=== PATIENT | female | born 1970 | race Hispanic/Latino ===

== ENCOUNTER 2021-09-20 12:26 | Emergency (ER) | payer SELFPAY ==
--- OUTSIDE RECORDS SUMMARY | 2021-09-20 12:29 | XMS REPORT | Continuity of Care Document ---
:1970 Author Organization [facility] t Address 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 Attending Clinician Unavailable MANDY MENA Attending Clinician Unavailable Devon STOCKTON, D Attending Clinician Payers Payer Name Policy Type Policy Number Effective Date Expiration Date S ource Problems Condition Condition Condition Status Onset Resolution Last Treating Co mments Source Name Details Category Date Date Treatment Clinician Date No known No known Disease Unive rs active active ity of problems problems [facility] Allergies, Adverse Reactions, Alerts Allergy Allergy Status Severity Reaction(s) Onset Inactive Treating Comm ents Source Name Type Date Date Clinician No Known DA Active U 2017-04 [facility] Allergie 04-05 Clear s 00:00: [facility] No Known DA Active U [facility] Contrast 05-03 Clear Allergie 00:: Lamas [facility] No Known DA Active U [facility] Drug 05-03 Clear Allergie 00:00: Lamas s [facility] No Known DA Active U [facility] Food 05-03 Clear Allergie 00:00: Lamas s [facility] No Known DA Active U 2002-0 [facility] Other 1-30 Clear Allergie 00:00: Lamas s 00 [facility] Social History Social Habit Start Date Stop Date Quantity Comments Source Sex Assigned At Uni versity [facility] Smoking Status Start Date Stop Date Source Unknown if ever smoked Universit y [facility] Medications Ordered Filled Start Stop Current Ordering Indication Dosage Frequency Signature Comments Components Source Medication Medication Date Date Medication? Clinician (SIG) Name Name cefTRIAXone 2019- No 1000mg 1,000 mg, Univers (ROCEPHIN) 05-09- IV ity of 1,000 mg in 09:15: 08:53 [place], [place] NaCl 0.9% 00 :00 ONCE, 1 Medical (NS) 50 mL dose, Wed Bran ch MINI-BAG 05/09/19 at 0315, 50 mL
Reas on for Anti-Infec tive: Documented Infection< br>Documen tushar Infection Site: Urine
D uration of Therapy: 7 days NaCl 0.9% 2019- No 1000mL at 999 Uni vers (NS) bolus 05-09 mL/hr, ity of infusion 07:45: 08:51 1,000 mL, Tay as 1,000 mL 00 :00 IV Medical Infusion, Branch ONCE, 1 dose, Tue05/09/19 at 0145, STAT sodium Yes 5mL 5 mL, Univers chloride 05-09 Intravenou ity o f (NS) 05:15: s, PRN, [place] injection 5 30 Starting Medi wayne mL 05/08/19 Branch at 2315, Until Discontinu ed, Routine, IV line flushing cephALEXin 2020- No [id number] 500mg Take 1 Univers (KEFLEX) 05-0916 capsule by ity of 500 mg 00:00: 05:59 mouth 2 [place] capsule 00 :00 (two) Medical times Branch daily for 10 days. ketorolac Yes 10mg Take 1 Univer s 10 mg 8-17 tablet by ity of tablet 00:00: mouth [place] 00 every 6 Medical (six) Branch hours as needed for Pain (scale 1-3). Vital Signs Vital Name Observation Time Observation Value Comments Source Systolic blood 2019-05-09 08:21:00 124 mm[Hg] Univer sity of pressure [facility] Diastolic blood 2019-05-09 08:21:00 90 mm[Hg] [facility] of pressure [facility] Heart rate 2019-05-09 08:21:00 71 /min [facility] Respiratory rate 2019-05-09 08:16:55 20 /min [facility] Oxygen saturation in 2019-05-09 08:16:55 100 /min [facility] Arterial blood by [facility] Pulse oximetry [place] Body temperature 2019-05-09 04:51:[address] [facility] Body weight 2019-05-09 04:51:00 86.198 kg [facility] Procedures Procedure Date / Time Performing Clinician Source Performed URINALYSIS 2019-05-09 06:49:00 Hayley Osorio [facility] GALV ONLY - INFLUENZA A 2019-05-09 06:48:00 Hayley Osorio [facility] B RSV PCR [facility] LIPASE 2019-05-09 05:29:00 Hardy Serrano [facility] TEST, SERUM 2019-05-09 05:29:00 [facility] 2019-05-09 05:29:00 Hardy Serrano [facility] COMP. METABOLIC PANEL 2019-05-09 05:29:00 Hardy Serrano [facility] ([id number]) [facility] CBC WITH DIFFERENTIAL 2019-05-09 05:29:00 Hardy Serrano [facility] PROTHROMBIN TIME / INR 2019-05-09 05:29:[address] [facility] ACTIVATED PARTIAL 2019-05-09 05:29:00 Hardy Serrano [facility] THRMPLAS SHRUTI [facility] EXTRA TUBE ORANGE 2019-05-09 05:29:00 Hardy Serrano [facility] EKG-12 LEAD 2019-05-09 05:16:51 Hardy Serrano [facility] Encounters Start End Encounter Admission Attending Care Care Encounter Source Date/Time Date/Time Type Type Clinicians Facility Department ID 2021-08-20 2021-08-21 Emergency E ABIODUN FARMER [facility] [id number] 21:00:00 00:03:00 LAURA 2020-11-18 2020-11-18 Outpatient CHANELJESUS MANUEL, [facility] [id number] 09:25:00 12:45:00 JE Hanson [facility] 2019-05-08 2019-05-09 Emergency Devon, TRAUMA [id number] Univers 22:55:48 03:03:[id number] [id number] [address] Results Test Description Test Time Test Comments Results Result Comments Source TEST, SERUM 2019-05-09 08:23:00 Test Item Value Reference Range Interpretation Comme nts PREG SERUM (test code = 4002269833) Negative BOY (test code = BOY) Less than 10 IU/L. ?If low titer or ectopic is suspected, resubmit specimen in 48-72 hours. [facility] B RSV [id number] 07:49:00 Test Item Value Reference Range Interpretation Comments Influenza A virus by PCR (test code Negative Negative = 43997-1) Influenza B virus by PCR (test code Negative Negative = 36738-7) RSV by PCR (test code = 08877-8) Negative Negative Lab Interpretation (test code = Normal 28112-9) [facility] 07[facility]22:00 Test Item Value Reference Range Interpretation Comments APPEARANCE (test code = Clear Clear 4264113196) COLOR (test code = Yellow Yellow 2971062356) PH (test code = 4.8-8.0 1718054209) SP GRAVITY (test code = 1.003-1.030 2554054418) GLU U QUAL (test code = Normal Normal 8841829423) BLOOD (test code = Negative Negative 4260458603) KETONES (test code = 80 mg/dL Negative A 4503189965) PROTEIN (test code = Negative Negative 2887-8) UROBILIN (test code = Normal Normal 8294628264) BILIRUBIN (test code = Negative Negative 0552912968) NITRITE (test code = Positive Negative A 5500745014) LEUK ROSS (test code = 250/uL Negative A 1572309180) RBC/HPF (test code = See_Comment [Autom ated message] 3820349927) The system via680 generated this result transmitted ref erence range: 0 - 3 HP F. The reference range was not used to int erpret this result as normal/abnormal . WBC/HPF (test code = See_Comment H [Autom ated message] 7482714881) The system via680 generated this result transmitted ref erence range: 0 - 5 HP F. The reference range was not used to int erpret this result as normal/abnormal . BACTERIA (test code = Many Negative A 1364772816) MUCOUS (test code = Slight Negative LPF A 0979754852) SQ EPITH (test code = See_Comment [Auto mated message] 6482244007) The system via680 generated this result transmitted ref erence range: <=2 HPF. The reference range was not used to int erpret this result as normal/abnormal . Lab Interpretation (test Abnormal code = 06497-3) [facility] WITH [id number] 06:30:00 Test Item Value Reference Range Interpretation Comments WBC (test code = See_Comment [Automated 6690-2) message] The sy stem which generated this result transmitted reference range : 4.30 - 11.10 10*3/?L. The reference range was not used to interpret this result as normal/abnormal . RBC (test code = See_Comment [Automated 789-8) message] The sy stem which generated this result transmitted reference range : 3.93 - 5.25 10*6/?L. The reference range was not used to interpret this result as normal/abnormal . HGB (test code = 14.4 g/dL 11.6-15 718-7) HCT (test code = 43.5 % 35.7-45.2 4544-3) MCV (test code = 89.7 fL 80.6-95.5 787-2) MCH (test code = 29.7 pg 25.9-32.8 785-6) MCHC (test code = 33.1 g/dL 31.6-35.1 786-4) RDW-SD (test code = 45.0 fL 39-49.9 26356-7) RDW-CV (test code = 13.8 % 12-15.5 788-0) PLT (test code = See_Comment [Automated 777-3) message] The sy stem which generated this result transmitted reference range : 166 - 358 10*3/ ?L. The reference r josh was not used to interpret this result as normal/abnormal . MPV (test code = 10.3 fL 9.5-12.9 59438-3) NRBC/100 WBC (test See_Comment [Automat ed code = 1845517790) message] The system which generated this result transmitted reference range : 0.0 - 10.0 /100 WBCs. The refer ence range was not u sed to interpret th is result as normal/abnormal . NRBC x10^3 (test code <0.01 See_Comment [Auto mated = 9918550354) message] The s ystem which generated this result transmitted reference range : 10*3/?L. The reference range was not used to interpret this result as normal/abnormal . GRAN MAT (NEUT) % 31.5 % (test code = 770-8) IMM GRAN % (test code 0.10 % = 7019275227) LYMPH % (test code = 60.1 % 736-9) MONO % (test code = 7.0 % 5905-5) EOS % (test code = 0.9 % 713-8) BASO % (test code = 0.4 % 706-2) GRAN MAT x10^3(ANC) 2.36 10*3/uL 1.88-7.09 (test code = 3083766670) IMM GRAN x10^3 (test <0.03 0-0.06 code = 0332557594) LYMPH x10^3 (test code 4.52 10*3/uL 1.32-3.29 H = 731-0) MONO x10^3 (test code 0.53 10*3/uL 0.33-0.92 = 742-7) EOS x10^3 (test code = 0.07 10*3/uL 0.03-0.39 711-2) BASO x10^3 (test code 0.03 10*3/uL 0.01-0.07 = 704-7) REACT LYMPHS (test Rare code = 1977201972) Lab Interpretation Abnormal (test code = 07458-8) [id number]00 Test Item Value Reference Range Interpretation Comments TROPONIN I (test 0.001 ng/mL See_Comment [Automated code = 4243854739) message] The system which generated this result transmitted reference range : <=0.034. The reference range was not used to interpret this result as normal/abnormal . BOY (test code = Equal or Less than BOY) 0.034 ng/ml---Normal ?Note: Cardiac troponin begins to rise 3-4 hours after the onset of ischemia. Repeat in 4-6 hours if the sample was drawn within 3-4 hours of the onset of the symptom and found normal. Between 0.035 and 0.120 ng/mL--- Borderline. Questionable myocardial injury or necrosis ? ?Note: Serial measurement may be necessary to confirm or exclude the diagnosis of myocardial injury or necrosis; Clinical correlation (symptoms, EKGs, imaging studies, and others) required; Repeat in 4-6 hours if clinically indicated. ? Equal or Higher than 0.121 ng/mL---Abnormal. Myocardial Injury or Necrosis Likely ? Biotin has been reported to cause a negative bias, interpret results relative to patient's use of biotin. ? Lab Interpretation Normal (test code = 71648-0) [facility]05829[facility]2019-05-09 06:13:00 Test Item Value Reference Range Interpretation Comments NA (test code = 140 mmol/L 135-145 1315961384) K (test code = 4.0 mmol/L 3.5-5 5938541239) CL (test code = 103 mmol/L 98-108 5806249702) CO2 TOTAL (test code = 22 mmol/L 23-31 L 6204887694) AGAP (test code = 2-16 9911445172) BUN (test code = 12 mg/dL 7-23 7906498346) GLUCOSE (test code = 75 mg/dL 70-110 4215825282) CREATININE (test code = 0.59 mg/dL 0.5-1.04 8428756958) TOTAL BILI (test code = 0.5 mg/dL 0.1-1.2 8234570523) CALCIUM (test code = 9.4 mg/dL 8.6-10.6 7687750438) T PROTEIN (test code = 8.1 g/dL 6.3-8.2 8111006486) ALBUMIN (test code = 4.6 g/dL 3.5-5 7149721515) ALK PHOS (test code = 68 U/L 34-122 6642807557) ALTv (test code = 24 U/L 5-35 1742-6) AST(SGOT) (test code = 47 U/L 13-40 H 4908424818) eGFR Calculation mL/min/1.73m2 (Non-) (test code = 7835357519) eGFR Calculation mL/min/1.73m2 () (test code = 0143487377) BOY (test code = BOY) Association of Glomerular Filtration Rate (GFR) and Staging of Kidney Disease* + --+ --+ ------+| GFR (mL/min/1.73 m2) ?| With Kidney Damage ?| ?Without Kidney Damage+ --------+ --------+ +| ?>90 ?| ?Stage one ?| ? Normal ?+ ---+ ---+ -------+| ?60-89 ?| ?Stage two ?| ? Decreased GFR ? + --+ --+ ------+| ?30-59 ?| ?Stage three ?| ? Stage three ? + --+ --+ ------+| ?15-29 ?| ?Stage four ? | ? Stage four ?+ ---+ ---+ -------+| ?<15 (or dialysis) ? ?| ?Stage five ? | ? Stage five ?+ ---+ ---+ -------+ *Each stage assumes the associated GFR level has been in effect for at least three months. ?Stages 1 to 5, with or without kidney disease, indicate chronic kidney disease. Notes: Determination of stages one and two (with eGFR >59mL/min/1.73 m2) requires estimation of kidney damage for at least three months as defined by structural or functional abnormalities of the kidney, manifested by either:Pathological abnormalities or Markers of kidney damage (including abnormalities in the composition of the blood or urine or abnormalities in imaging tests). Lab Interpretation Abnormal (test code = 12416-5) [facility], [id number] 06:13:00 Test Item Value Reference Range Interpretation Comments LIPASE (test code = 4777933164) 69 U/L 0-220 Lab Interpretation (test code = Normal 80975-0) [facility]2020-[facility] 06:05:00 Test Item Value Reference Range Interpretation Comments APTT Patient (test code = See_Comment [ Automated message] 3173-2) The system 139shop h generated this result transmitted ref erence range: 26 - 36 Seconds. The re ference range was not u sed to interpret this result as normal/abnor mal. Lab Interpretation (test Normal code = 98465-3) [facility] / [id number] 06:05:00 Test Item Value Reference Range Interpretation Comments PROTIME PATIENT (test See_Comment [Auto mated message] code = 5964-2) The system [employer] generated this result transmitted ref erence range: 10.1 - 1 2.6 Seconds. The re ference range was not u sed to interpret this result as normal/abnor mal. INR (test code = 6301-6) Nor mal INR <1.1; Warfarin Therap eutic range 2.0 to 3. 0 or 2.5 to 3.5, dep ending upon the indica tions. Lab Interpretation (test Normal code = 21905-1) [facility]"
[2021-09-20] MEDS ORDERED: NA CHLORIDE 0.9% 1,000 ML ONE (12:45)
[2021-09-20 13:32] LABS: Absolute Lymphocytes (CBC) 2.4 K/uL (0.7-4.9); Lymphocytes % 24.8 % (15.3-44.8); MPV 8.5 fL (7.6-11.3); RBC Red Blood Cell Count 4.32 M/uL (3.86-4.86)
[2021-09-20] MEDS ORDERED: MORPHINE 4 MG/ML SYR ONE (13:34)
[2021-09-20] MEDS ORDERED: CEFTRIAXONE 1000 MG/VIAL ONE (13:34)
[2021-09-20] MEDS ORDERED: ONDANSETRON 4 MG/2 ML VIAL ONE (13:34)
[2021-09-20 13:37] LABS: Albumin 3.7 g/dL (3.4-5.0); Bilirubin Total 0.3 mg/dL (0.2-1.0); Protein, Total 7.1 g/dL (6.4-8.2)
[2021-09-20 14:08] LABS: Urine Blood Negative (Negative); Urine Glucose Negative (Negative); Urine Protein Negative (Negative); Urine Specific Gravity 1.025 (1.005-1.030)
[2021-09-20 14:21] LABS: Urine Bacteria <20 /HPF (<20); Urine RBC NONE SEEN /HPF (NONE SEEN)
--- NOTE | 2021-09-20 14:22 | RAD REPORT ---
EXAM DESCRIPTION: CTAbdomen Pelvis Wo Contrast - 09/20/2021 2:11 pm CLINICAL HISTORY: Abdominal abscess/infection suspected COMPARISON: No comparisons TECHNIQUE: CT of the abdomen and pelvis was performed. All CT scans are performed using dose optimization technique as appropriate and may include automated exposure control or mA/KV adjustment according to patient size. FINDINGS: Lower chest: No acute abnormality. Liver: No acute abnormality or suspicious lesions. Biliary: No biliary ductal dilatation. Stomach: No significant focal abnormality. Duodenum: No significant focal abnormality. Pancreas: No significant abnormality. Spleen: No significant abnormality. Adrenal: No suspicious lesions. Kidney/ureter: No hydronephrosis. No renal calculi. Retroperitoneum: No retroperitoneal adenopathy. Vascular: No aneurysm. Bowel: Nonspecific fluid within the small bowel. No bowel obstruction. Normal appendix.. Peritoneum: No ascites or free air. Bladder: Grossly unremarkable. Reproductive: No adnexal masses. Bones: No acute fracture. Disc height loss at L4-5 and L5-S1. Other: n/a IMPRESSION: No acute intra-abdominal or pelvic finding. No urinary tract calculi. Normal appendix. N onspecific fluid within the small bowel could represent a mild gastroenteritis.
--- NOTE | 2021-09-20 15:11 | EDPHYS ---
Physician Documentation [facility] Name: Denis Sanchez Age: 50 yrs Sex: Female : 1970 Arrival Date: 09/20/2021 Time: 12:29 Bed 8 Private MD: ED Physician Houston Sanchez HPI: 09/20 13:33 This 50 yrs old Female presents to ER via Ambulatory with complaints of ma2 Abdominal Swelling, Pain With Urination, Back Pain. 13:33 Associated signs and symptoms: Pertinent negatives: diarrhea, fever, nausea. Severity ma2 of symptoms: At their worst the symptoms were moderate, in the emergency department the symptoms are unchanged. Associated signs and symptoms: Pertinent negatives: dysuria, headache, incontinence. 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 - Social history:: Smoking status: Reported history of juuling and/or vaping. Patient denies any tobacco usage or history of. Patient/guardian denies using alcohol, street drugs, The patient lives with family. - Family history:: not pertinent. ROS: 13:33 ma2 13:33 Constitutional: Negative for fever, chills, and weight loss, Respiratory: Negative for shortness of breath, cough, wheezing, and pleuritic chest pain. 13:33 All other systems are negative. Exam: 13:33 Constitutional: This is a well developed, well nourished patient who is awake, alert, ma2 and in no acute distress. Chest/axilla: Normal chest wall appearance and motion. Nontender with no deformity. No lesions are appreciated. Cardiovascular: Regular rate and rhythm with a normal S1 and S2. No gallops, murmurs, or rubs. Normal PMI, no JVD. No pulse deficits. Respiratory: Lungs have equal breath sounds bilaterally, clear to auscultation and percussion. No rales, rhonchi or wheezes noted. No increased work of breathing, no retractions or nasal flaring. Abdomen/GI: Soft, non-tender, with normal bowel sounds. No distension or tympany. No guarding or rebound. No evidence of tenderness throughout. Back: No spinal tenderness. No costovertebral tenderness. Full range of motion. Skin: Warm, dry with normal turgor. Normal color with no rashes, no lesions, and no evidence of cellulitis. MS/ Extremity: Pulses equal, no cyanosis. Neurovascular intact. Full, normal range of motion. Neuro: Awake and alert, GCS 15, oriented to person, place, time, and situation. Cranial nerves II-XII grossly intact. Motor strength 5/5 in all extremities. Sensory grossly intact. Cerebellar exam normal. Normal gait. Vital Signs: 12:41 BP 121 / 89; Pulse 72; Resp 16; Temp 97.0; Pulse Ox 99% on R/A; Weight 77.11 kg; Height ph 5 ft. 4 in. (162.56 cm); Pain 9/10; 12:53 BP 116 / 86; Pulse 69; Resp 17 S; Pulse Ox 99% on R/A; jg9 13:39 BP 124 / 89; Pulse 73; Resp 17; Pulse Ox 99% on R/A; ingram 15:16 BP 112 / 64; Pulse 75; Resp 17 S; Pulse Ox 98% ; jg9 12:41 Body Mass Index 29.18 (77.11 kg, 162.56 cm) ph MDM: 13:33 Patient medically screened. [facility] 13:33 Differential diagnosis: appendicitis, cervicitis, menorrhea, Data reviewed: vital [facility] signs, nurses notes. 15:09 Response to treatment: the patient's symptoms have markedly improved after treatment. [facility] 09/20 12:32 Order name: CBC with Diff; Complete Time: 14:12 [facility] 09/20 12:32 Order name: CMP; Complete Time: 14:12 [facility] 09/20 12:32 Order name: Lipase; Complete Time: 14:12 [facility] 09/20 12:32 Order name: Urine Microscopic Only; Complete Time: 15:00 [facility] 09/20 14:09 Order name: Urine Dipstick-Ancillary; Complete Time: 14:12 [facility] 09/20 14:13 Order name: Urine --Ancillary (enter results) 09/20 12:32 Order name: IV Saline Lock; Complete Time: 12:45 [facility] 09/20 13:52 Order name: Abdomen ; Complete Time: 15:00 [facility] 09/20 14:24 Order name: Urine Culture [facility] 09/20 12:32 Order name: Labs collected and sent; Complete Time: 12:45 [facility] 09/20 12:32 Order name: Urine Dipstick-Ancillary (obtain specimen); Complete Time: 14:13 [facility] 09/20 12:32 Order name: Urine Test (obtain specimen); Complete Time: 14:13 [facility] 09/20 12:56 Order name: Labs - recollect needed: recollect all tubes; Complete Time: 13:02 bd Administered Medications: 12:45 Drug: NS 0.9% 1000 ml Route: IV; Rate: 1 bolus; Site: right antecubital; ingram 15:21 Follow up: IV Status: Completed infusion; IV Intake: 1000ml jg9 13:36 Drug: Rocephin (cefTRIAXone) 1 grams Route: IV; Rate: calculated rate; Site: right hand;ingram 15:20 Follow up: IV Status: Completed infusion; IV Intake: 50ml jg9 13:36 Drug: morphine 4 mg Route: IVP; Infused Over: 4 mins; Site: right hand; ingram 13:36 Follow up: Response: No adverse reaction ingram 13:36 Drug: Zofran (Ondansetron) 4 mg Route: IVP; Site: left hand; ingram 13:36 Follow up: Response: No adverse reaction ingram Disposition Summary: 09/20/21 15:10 Discharge Ordered Location: Home ma2 Condition: Stable ma2 Diagnosis - UTI/ Urinary tract infection, site not specified ma2 Followup: ma2 - With: Private Physician - When: Tomorrow - Reason: If symptoms return, Continuance of care Discharge Instructions: - Discharge Summary Sheet ma2 - Urinary Tract Infection, Adult ma2 Forms: - Medication Reconciliation Form ma2 - Thank You Letter ma2 - Antibiotic Education ma2 - Prescription Opioid Use ma2 Prescriptions: - Diclofenac Sodium 75 mg Oral Tablet Sustained Release - take 1 tablet by ORAL route 2 times per day; 30 tablet; Refills: 0, Product ma2 Selection Permitted - cefpodoxime 200 mg Oral Tablet - take 1 tablet by ORAL route every 12 hours with food; 20 tablet; Refills: 0, ma2 Product Selection Permitted Signatures: Dispatcher [employer] [facility] Helene Summers Patricia, RN RN ph Houston Sanchez MD MD ma2 Cortney Brunson RN RN Laura Grossman RN jg9 Corrections: (The following items were deleted from the chart) 12:41 12:40 PMHx: None; ph ph 13:52 13:26 Abdomen Pelvis W Con+CT.RAD.BRZ ordered. EDMS EDMS
--- NOTE | 2021-09-20 15:11 | ER ---
Nurse's Notes [facility] Name: Denis Sanchez Age: 50 yrs Sex: Female : 1970 Arrival Date: 09/20/2021 Time: 12:29 Bed 8 Private MD: Diagnosis: UTI/ Urinary tract infection, site not specified Presentation: 09/20 12:41 Chief complaint: Patient states: Abd. pain with bloating that wraps around to back for ph 2 days. Had low grade fever of 99 at home. + dysuria. States she started vaginal bleeding today, so she wanted to come get checked out. Coronavirus screen: Vaccine status: Patient reports being unvaccinated. Client denies travel out of the [place] in the last 14 days. At this time, the client does not indicate any symptoms associated with coronavirus-19. Ebola Screen: Patient denies travel to an Ebola-affected area in the 21 days before illness onset. Initial Sepsis Screen: Does the patient meet any 2 criteria? No. Patient's initial sepsis screen is negative. Does the patient have a suspected source of infection? Yes: Acute abdominal pain. Risk Assessment: Do you want to hurt yourself or someone else? Patient reports no desire to harm self or others. Onset of symptoms was September 19, 2021. 12:41 Method Of Arrival: Ambulatory ph 12:41 Acuity: FAM 3 ph Triage Assessment: 12:44 General: Appears uncomfortable, Behavior is calm, cooperative, appropriate for age. ph Pain: Complains of pain in abdomen Pain currently is 9 out of 10 on a pain scale. Quality of pain is described as aching, crampy. GI: Reports lower abdominal pain, upper abdominal pain, cramping. : Reports burning with urination, vaginal bleeding that is. WEB CONTENT EDITOR: 15:20 LMP N/A - Irregular menses jg9 Historical: - Allergies: 12:40 No Known Allergies; ph - PMHx: 12:40 Depressive disorder; Bipolar disorder; adhd; ph - PSHx: 12:40 section; ph - Immunization history:: Client reports having NOT received the Covid vaccine. - Social history:: Smoking status: Reported history of juuling and/or vaping. Patient denies any tobacco usage or history of. Patient/guardian denies using alcohol, street drugs, The patient lives with family. - Family history:: not pertinent. Screenin:48 Abuse screen: Denies threats or abuse. Denies injuries from another. Nutritional ingram screening: No deficits noted. Tuberculosis screening: No symptoms or risk factors identified. Fall Risk None identified. Assessment: 12:48 Pain: Complains of pain in back and abdomen. : Reports burning with urination, pain ingram blood in urine. 12:49 GI: Abd is soft and non tender X 4 quads. ingram Vital Signs: 12:41 BP 121 / 89; Pulse 72; Resp 16; Temp 97.0; Pulse Ox 99% on R/A; Weight 77.11 kg; Height ph 5 ft. 4 in. (162.56 cm); Pain 9/10; 12:53 BP 116 / 86; Pulse 69; Resp 17 S; Pulse Ox 99% on R/A; jg9 13:39 BP 124 / 89; Pulse 73; Resp 17; Pulse Ox 99% on R/A; ingram 15:16 BP 112 / 64; Pulse 75; Resp 17 S; Pulse Ox 98% ; jg9 12:41 Body Mass Index 29.18 (77.11 kg, 162.56 cm) ph ED Course: 12:29 Patient arrived in ED. mr 12:31 Houston Sanchez MD is Attending Physician. ma2 12:35 Cortney Brunson, RN is Primary Nurse. ingram 12:40 Arm band placed on Patient placed in an exam room, on a stretcher. ph 12:44 Triage completed. ph 12:46 Inserted saline lock: 20 gauge in right antecubital area, using aseptic technique. tp1 Blood collected. 12:48 Patient has correct armband on for positive identification. Bed in low position. ingram 12:48 No provider procedures requiring assistance completed. Inserted. ingram 14:13 Abdomen In Process Unspecified. EDMS 15:19 IV discontinued. jg9 Administered Medications: 12:45 Drug: NS 0.9% 1000 ml Route: IV; Rate: 1 bolus; Site: right antecubital; ingram 15:21 Follow up: IV Status: Completed infusion; IV Intake: 1000ml jg9 13:36 Drug: Rocephin (cefTRIAXone) 1 grams Route: IV; Rate: calculated rate; Site: right hand;ingram 15:20 Follow up: IV Status: Completed infusion; IV Intake: 50ml jg9 13:36 Drug: morphine 4 mg Route: IVP; Infused Over: 4 mins; Site: right hand; ingram 13:36 Follow up: Response: No adverse reaction ingram 13:36 Drug: Zofran (Ondansetron) 4 mg Route: IVP; Site: left hand; ingram 13:36 Follow up: Response: No adverse reaction ingram Medication: 12:48 VIS not applicable for this client. ingram Intake: 15:20 IV: 50ml; Total: 50ml. jg9 15:21 IV: 1000ml; Total: 1050ml. jg9 Outcome: 15:10 Discharge ordered by . trinh 15:19 Discharged to home ambulatory. jg9 15:19 Condition: stable 15:19 Discharge instructions given to patient, Instructed on discharge instructions, follow up and referral plans. Demonstrated understanding of instructions, follow-up care, Prescriptions given X 2. 15:20 Patient left the ED. jg9 Signatures: Dispatcher [employer] Janette Lino Patricia, RN RN Houston Sanchez MD MD ma2 Parker, Tiffany tpLaura Menchaca RN RN jg9 Cortney Brunson RN RN ingram Corrections: (The following items were deleted from the chart) 12:41 12:40 PMHx: None; [facility]
[2021-09-20 15:31] VITALS: TEMP 97
[2021-09-20 15:57] VITALS: BP 112/64; O2SAT 98
[2021-09-20 19:52] LABS: Urine Specific Gravity/Preg 1.025 (1.005-1.030)
== END 2021-09-20 15:20 | disposition home or self-care (01) ==
LOC: ER 12:26
DX: N39.0 Urinary tract infection, site not specified (principal)
CPT/HCPCS: 36415; 74176; 80053; 81003; 81015; 81025; 83690; 85025; 87086; 87088; 99284; J2405; J7030

== ENCOUNTER 2022-08-19 10:20 | Emergency (ER) | payer SELFPAY ==
--- OUTSIDE RECORDS SUMMARY | 2022-08-19 10:24 | XMS REPORT | Continuity of Care Document ---
:1970 Author Organization [facility] t Address [address] [place] [address] Care Team Providers Name Role Phone Stacey Lagunas Attending Clinician Unavailable Laura Cedillo Attending Clinician LAURA CEDILLO Attending Clinician Unavailable Je Mena Attending Clinician JE MENA Attending Clinician Unavailable Hayley Osorio MD Attending Clinician UNDEFINED Admitting Clinician Unavailable Payers Payer Name Policy Type Policy Number Effective Date Expiration Date S ource Problems Condition Condition Condition Status Onset Resolution Last Treating Co mments Source Name Details Category Date Date Treatment Clinician Date CHEST PAIN CHEST Diagnosis Active 2021-2021-08-26 Memoria PAIN 08-20 12:45:00 l Active 00:00: [place] 08/20/2021 00 [facility] Z80.0 Z80.0 Diagnosis Active 2020-11-18 [facility] sandraa Z12.10 Z12.10 8-11 13:44:00 l Active 00:00: [place] 11/12/2020 00 [facility] Z12.31 - Z12.31 - Diagnosis Active 2021-01-04 Memoria ENCNTR ENCNTR 10-22 15:39:00 l SCREEN SCREEN 00:01: [place] MAMMOGRAM MAMMOGRAM 00 FOR MA FOR MA Active 10/22/2020 [facility] No known No known Disease Unive rs active active ity of problems problems [facility] Allergies, Adverse Reactions, Alerts Allergy Allergy Status Severity Reaction(s) Onset Inactive Treating Comm ents Source Name Type Date Date Clinician No Known DA Active U [facility]-16 [facility] 00 [facility] No Known DA Active U 2017-04 [facility] Allergie 1-02 [facility] 00:[facility]: [facility] 00 [facility] No Known DA Active U 2017-04 [facility] Allergie 1- Clear s 00:00: [place] 00 [facility] No Known DA Active U 2001-0 [facility] Contrast 1-30 Clear Allergie 00:00: [place] 00 [facility] No Known DA Active U 2001-0 [facility] Drug 1-30 Clear Allergie 00:00: [place] 00 [facility] No Known DA Active U 2001-0 [facility] Food 1-30 Clear Allergie 00:00: [place] 00 [facility] No Known DA Active U 2001-0 [facility] Other 1-30 Clear Allergie 00:00: [place] 00 [facility] No Known No Known Active Memori a Medicati Medicati l on on Valentin Allergie Allergie s s Social History Social Habit Start Date Stop Date Quantity Comments Source Sex Assigned At [facility] Social History 2014-09-03 2014-09-03 [facility] charly 23:47:44 23:47:44 Smoking Status Start Date Stop Date Source Unknown if ever smoked [facility] Medications Ordered Filled Start Stop Current Ordering Indication Dosage Frequency Signature Comments Components Source Medication Medication Date Date Medication? Clinician (SIG) Name Name James Yes PO, QAM, 0 Me moria 8-17 Refill(s) l 14:45: Wellbutrin 0 Yes PO, 0 Memori a 8-17 Refill(s) l 14:45: Ambien 0 Yes PO, Memoria 8-17 Bedtime, 0 l 14:45: Refill(s) Trazodone 0 Yes PO, BID, 0 Me moria 8-17 Refill(s) l 14:45: Depakote 0 Yes PO, TID, 0 Mem oria 8-17 Refill(s) l 14:45: Strattera Yes PO, QAM, 0 Me moria 8-17 Refill(s) l 14:44: cefTRIAXone 2019-0 2020- No 1000mg 1,000 mg, Univers (ROCEPHIN) 2- 02-05 IV ity of 1,000 mg in 09:15: 08:53 [place], [place] NaCl 0.9% 00 :00 ONCE, 1 Medical (NS) 50 mL dose, Wed Bran ch MINI-BAG 05/09/19 at 0315, 50 mL
Reas on for Anti-Infec tive: Documented Infection< br>Documen tushar Infection Site: Urine
D uration of Therapy: 7 days NaCl 0.9% 0 2020- No 1000mL at 999 Uni vers (NS) bolus 2-05 02-05 mL/hr, ity of infusion 07:45: 08:51 1,000 mL, Tay as 1,000 mL 00 :00 IV Medical Infusion, Branch ONCE, 1 dose, 05/09/19 at 0145, STAT sodium 2019-0 Yes 5mL 5 mL, Univers chloride 2-05 Intravenou ity o f (NS) 05:15: s, PRN, [place] injection 5 30 Starting Medi wayne mL 05/08/19 Branch at 2315, Until Discontinu ed, Routine, IV line flushing cephALEXin 2019-0 2020- No [id number] 500mg Take 1 Univers (KEFLEX) 2 02-16 capsule by ity of 500 mg 00:00: 05:59 mouth 2 [place] capsule 00 :00 (two) Medical times Branch daily for 10 days. ketorolac Yes 10mg Take 1 Univ s 10 mg 8-17 tablet by ity of tablet 00:00: mouth [place] [address] every 6 Medical (six) Branch hours as needed for Pain (scale 1-3). Vital Signs Vital Name Observation Time Observation Value Comments Source Systolic blood 2019-05-09 08:21:00 124 mm[Hg] Univer sity of pressure [facility] Diastolic blood 2019-05-09 08:21:00 90 mm[Hg] Unive rsity of [facility] Heart rate 2019-05-09 08:21:00 71 /min General acute hospital Respiratory rate 2019-05-09 08:16:55 20 /min [facility] Oxygen saturation in 2019-05-09 08:16:55 100 /min [facility] Arterial blood by [facility] Pulse oximetry Branch Body weight 2019-05-09 04:51:00 86.198 kg General acute hospital Body temperature 2019-05-09 04:51:00 36.5 Mariely [facility] Height 2021-08-21 02:07:00 167.64 cm [facility] BMI Calculated 2021-08-21 02:07:00 [facility] [place] Weight 2021-08-21 02:07:00 [facility] [place] Systolic (mm Hg) 2021-08-21 02:07:00 Cedric rial [place] Diastolic (mm Hg) 2021-08-21 02:07:00 Mem orial [place] Heart Rate 2021-08-21 02:07:00 [facility] [place] Respitory Rate 2021-08-21 02:07:00 Memori al [place] Temperature Oral (F) 2021-08-21 02:07:[address] [facility] Valentin Height 2020-11-18 15:44:00 [address] [facility] [place] Weight 2020-11-18 15:44:00 [facility] [place] BMI Calculated 2020-11-18 15:44:00 Memsandra Boydann Procedures Procedure Date / Time Performing Clinician Source Performed URINALYSIS 2019-05-09 06:49:[address] [facility] GALV ONLY - INFLUENZA A 2019-05-09 06:48:00 Hayley Osorio [facility] B RSV PCR Medical Branch LIPASE 2019-05-09 05:29:00 Hardy Serrano [facility] TEST, SERUM 2019-05-09 05:29:00 [facility] 2019-05-09 05:29:00 Hardy Serrano [facility] COMP. METABOLIC PANEL 2019-05-09 05:29:00 Hardy Serrano [facility] ([id number]) [facility] CBC WITH DIFFERENTIAL 2019-05-09 05:29:00 Hardy Serrano [facility] PROTHROMBIN TIME / INR 2019-05-09 05:29:00 Hardy Serrano [facility] ACTIVATED PARTIAL 2019-05-09 05:29:00 Hardy Serrano [facility] THRMPLAS [facility] EXTRA TUBE ORANGE 2019-05-09 05:29:00 Hardy Serrano [facility] EKG-12 LEAD 2019-05-09 05:16:51 Hardy Serrano [facility] Encounters Start End Encounter Admission Attending Care Care Encounter Source Date/Time Date/Time Type Type Clinicians Facility Department ID 2022-05-20 2022-05-20 Emergency EM Janneth, [facility] [id number] [facility] 12:49:00 16:36:00 [facility] 2021-08-21 2021-08-21 Emergency [facility] [id number] Memoria 02:00:00 05:03:00 michell Hanson 01 l [facility] 2021-08-20 2021-08-21 Outpatient GLORIA Cedillo [facility] [id number] 21:00:00 00:03:00 Laura Mckay 2021-08-20 2021-08-21 Emergency E ABIODUN CEDILLO [facility] [id number] MICHELLE 21:00:00 00:03:00 LAURA 2020-11-18 2020-11-18 Bedded [facility] [id number] Memoria 14:25:00 17:45:00 Outpatient michell Hanson 00 l [facility] 2020-11-18 2020-11-18 Outpatient Trina [facility] [id number] 09:25:00 12:45:00 Mouhamad 00 Radwan 2020-11-18 2020-11-18 Outpatient Trina [facility] [id number] 09:25:00 12:45:00 Mouhamad 00 Radwan 2020-11-18 2020-11-18 Outpatient TRINA [facility] [id number] Memoria 09:25:00 12:45:00 MOUHAMAD l [place] [facility] 2019-05-08 2019-05-09 Emergency Osorio, TRAUMA [id number] Univers 22:55:48 03:03:00 [facility][note 3] [id number] [place] [id number] [facility] 014 Branch 2014-09-03 2014-09-03 Outpatient [facility] [id number] [facility] 18:00:00 18:00:00 00 abrahan Hanson Results Test Description Test Time Test Comments Results Result Comments Source CHLAMYDIA GC DNA BY PCR 2022-05-20 15:52:00 Test Item Value Reference Range Interpretation Comme nts C. TRACHOMATIS DNA BY PCR NOT DETECTED Not Detecte (test code = CHLAMTDNA) N. GONORRHOEAE DNA BY PCR NOT DETECTED Not Detecte TE ST PERFORMED USING THE (test code = NGONORDNA) CEP BETTE GENEXPERT BY PCR.FALSE NEGAT DANIEL RESULTS MAY OCCUR IF TH E ORGANISM(S) ISPRESENT AT LE VELS BELOW THE ANALYTICAL LIMI T OD DETECTION.BECAU SE THE DETECTION OF CH LAMYDIA TRACHOMATIS AND NEISSERIA GONORRHOEAE IS DEPENDENT ON THE DNA PRESENT INTHE SAMPLE, RELIABLE RESULT S ARE DEPENDENT ON MI OPER SAMPLECOLLECTIO N, HANDLING, AND STORAGE. Comments to Box Hinge And Lock Attacher: from urineUA RFLX MICR CULT IF [id number] 14:33:00 Test Item Value Reference Range Interpretation Comments UA COLOR (test code = COLU) COLORLESS YELLOW UA APPEARANCE (test code = CLEAR CLEAR APPU) UA GLUCOSE DIPSTICK (test code NEGATIVE NEG = DGLUU) UA BILIRUBIN DIPSTICK (test NEGATIVE NEG code = BILU) UA KETONE DIPSTICK (test code NEGATIVE NEG = KETU) UA SPECIFIC GRAVITY (test code 1.002 1.001-1.035 N = SGU) UA BLOOD DIPSTICK (test code = NEG NEG MARCOS) UA PH DIPSTICK (test code = 7.0 5-9 RUTH) UA PROTEIN DIPSTICK (test code NEGATIVE NEG = PROU) UA UROBILINIOGEN DIPSTICK NEGATIVE mg/dL NEG (test code = URO) UA NITRITE DIPSTICK (test code NEG NEG = LUCY) UA LEUKOCYTE ESTERASE DIPSTICK NEG NEG (test code = LEUU) UA WBC (test code = WBCU) 0-2 #/hpf NONE SEEN UA EPITHELIAL CELLS (test code RARE #/HPF RARE-FEW = EPIU) UA RBC (test code = RBCU) 0-2 #/hpf NONE SEEN Indication for culture: Suprapubic PainSpecimen Description: CLEAN CATCHUR HCG [id number] 14:33:00 Test Item Value Reference Range Interpretation Comments UR HCG QUAL (test NEGATIVE 1. Very di lute urine code = HCGQLU) specimens, as indicated by a lowspecific g ravity, may not contain rep resentative levels ofhCG. 2 . False negative result s may occur when the levels of hCGare below the sensi tivity level of the test. If is still suspec tushar, a first morningurine sp ecimen should be colle cted 48 hours later and tested. Indication for culture: Suprapubic PainSpecimen Description: CLEAN CATCH- DUP AB/PEL/SC/[id number] 00:00:00 [facility] 1970 Sex: F Patient Name: GENARO WHEAT Unit No: [id number] EXAMS: CPT CODE: [id number] DUP AB/PEL/SC/LTD 42714 PROCEDURE INFORMATION: Exam: US Pelvis Complete (Transabdominal), Pelvis (Transvaginal), and US Duplex Arteryor Vein (Ovaries) Limited Exam date and time: 05/20/2022 2:02 PM Age: 51 years old Clinical indication: Pelvic pain; Prior surgery; Surgery date: 6+ months; Surgery type: C-s TECHNIQUE: Imaging protocol: Real-time transabdominal and transvaginal pelvic ultrasound (complete) with image documentation. Transvaginal imaging was used for better evaluation of the endometrium, adnexa, and/or cervix. Real-time duplex ultrasound scan of the arterial or venous flow of the ovaries with B-mode, color Doppler flow and spectral waveform analysis. Complete Pelvis, Limited Duplex. Duplex exam was performed to evaluate for torsion and other vascular conditions. COMPARISON: No relevant prior studies available. FINDINGS: Uterus: Anteverted. The uterus measures 6.7 x 3.2 x 4.2 cm. Endometrial stripe measures 4 mm. There are 2 small uterine fibroid measuring up to 9 x 11 mm in the anterior mid uterus. Right ovary/adnexa: Measures 2.1 x 1.2 x 1.4 cm. There is normal color and spectral Doppler evaluation of the ovary.No mass. Left ovary/adnexa: Measures 3.0 x 1.5 x 1.5 cm. There is normal color and spectral Doppler evaluation of the ovary. No mass. Intraperitoneal space: There is trace fluid in the cul-de-sac, likely physiologic. Urinary bladder: Unremarkble. IMPRESSION: 1. Small uterine fibroids. 2. Otherwise, unremarkable exam. at 1452 Reported and signed by: Starr Jordan CC: Stacey Lagunas MD Technologist: Della Vargas RDMS Probe: Trnscrbd D/ (9582) GCD.CPS Orig Print D/T: S: 05/20/2022 (4442) [facility] NAME: GENARO WHEAT Radiology Department PHYS: PETCA. - Stacey Lagunas [address] : 1970 AGE: 51 SEX: F [place], [place] [address] LOC: LaytonERS PHONE #: [phone] EXAM DATE: 05/20/2022 STATUS: REG ER FAX #: [phone] RAD NO: Page 1 Signed Report Patient Name: GENARO WHEAT Unit No: [id number] EXAMS: CPT CODE: [id number] DUP AB/PEL/SC/LTD 96291 (Continued) [facility] NAME: GENARO WHEAT Radiology Department PHYS: PETRODRIGUEZ.Stacey Che [address] : 1970 AGE: 51 SEX: F [place], [place] [address] LOC: MAX PHONE #:[phone] EXAM DATE: 05/20/2022 STATUS: REG ER FAX #: [phone] RAD NO: Page 2 Signed Report- US TRANSVAGINAL [id number] 00:00[facility] 1970 Sex: F Patient Name: GENARO WHEAT Unit No: [id number] EXAMS: CPT CODE: [id number] US TRANSVAGINAL W/PELVIS 67680 PROCEDURE INFORMATION: Exam: US Pelvis Complete (Transabdominal), Pelvis (Transvaginal), and US Duplex Artery or Vein (Ovaries) Limited Exam date and time: 05/20/2022 2:02 PM Age: 51 years old Clinical indication: Pelvic pain; Prior surgery; Surgery date: 6+ months; Surgery type: C-s TECHNIQUE: Imaging p rotocol: Real-time transabdominal and transvaginal pelvic ultrasound (complete) with image documentation. Transvaginal imaging was used for better evaluation of the endometrium, adnexa, and/or cervix. Real-time duplex ultrasound scan of the arterial or venous flow of the ovaries with B-mode, color Doppler flow and spectral waveform analysis. Complete Pelvis, Limited Duplex. Duplex exam was performed to evaluate for torsion and other vascular conditions. COMPARISON: No relevant prior studies available. FINDINGS: Uterus: Anteverted. The uterus measures 6.7 x 3.2 x 4.2 cm. Endometrial stripe measures4 mm. There are 2 small uterine fibroid measuring up to 9 x 11 mm in the anterior mid uterus. Right o vary/adnexa: Measures 2.1 x 1.2 x 1.4 cm. There is normal color and spectral Doppler evaluation of the ovary. No mass. Left ovary/adnexa: Measures 3.0 x 1.5 x 1.5 cm. There is normal color and spectralDoppler evaluation of the ovary. No mass. Intraperitoneal space: There is trace fluid in the cul-de-sac, likely physiologic. Urinary bladder: Unremarkble. IMPRESSION: 1. Small uterine fibroids. 2. Otherwise, unremarkable exam. at 1452 Reported and signed by: Starr Jordan CC: Stacey Lagunas MD Technologist: Della Vargas RDMS Probe: [id number] Trnscrbd D/ (3172) GCD.CPS Orig Print D/T: S: 05/20/2022 (1452) [facility] GENARO WHEAT Radiology Department PHYS: JAGDISH. - Stacey Lagunas [address] : 1970 AGE: 51 SEX: F [place], [place] [address] LOC: MAX PHONE #:[phone] EXAM DATE: 05/20/2022 STATUS: REG ER FAX #: [phone] RAD NO: Page 1 Signed Report Alonso alicia Name: GENARO WHEAT Unit No: [id number] EXAMS: CPT CODE: [id number] US TRANSVAGINAL W/PELVIS 66796 (Continued) [facility] NAME: GENARO WHEAT Radiology Department PHYS: JAGDISH. - Stacey Lagunas [address] : 1970 AGE: 51 [place]EX: [place] [address] LOC: MAX PHONE #: [phone] EXAM DATE: 05/20/2022 STATUS: REG ER FAX #: [phone] RADNO: Page 2 Signed Report- US PELVIS [id number] 00:00:00 [facility] 1970 Sex: F Patient Name: GENARO WHEAT Unit No: [id number] EXAMS: CPT CODE: [id number] US PELVIS COMPLETE 51990 PROCEDURE INFORMATION: Exam: US Pelvis Complete (Transabdominal), Pelvis (Transvaginal), and US Duplex Artery or Vein (Ovaries) Limited Exam date and time: 05/20/2022 2:02 PM Age: 51 years old Clinical indication: Pelvic pain; Prior surgery; Surgery date: 6+ months; Surgery type: C-s TECHNIQUE: Imaging protocol: Real-time transabdominal and transvaginal pelvic ultrasound (complete) with image documentation. Transvaginal imaging was used for better evaluation of the endometrium, adnexa, and/or cervix. Real-time duplex ultrasound scan of the arterial or venous flow of the ovaries with B-mode, color Doppler flow and spectral waveform analysis. Complete Pelvis, Limited Duplex. Duplex exam was performed to evaluate for torsion and other vascular conditions. COMPARISON: No relevant prior studies available. FINDINGS: Uterus: Anteverted. The uterus measures 6.7 x 3.2 x 4.2 cm. Endometrial stripe measures 4 mm. There are 2 small uterine fibroid measuring up to 9 x 11 mm in the anterior mid uterus. Right ovary/adnexa: Measures 2.1 x 1.2 x 1.4 cm. There is normal color and spectral Doppler evaluation of the ovary. No mass. Left ovary/adnexa: Measures 3.0 x 1.5 x 1.5 cm. There is normal color and spectral Dopplerevaluation of the ovary. No mass. Intraperitoneal space: There is trace fluid in the cul-de-sac, likely physiologic. Urinary bladder: Unremarkble. IMPRESSION: 1. Small uterine fibroids. 2. Otherwise, unremarkable exam. at 1452 Reported and signed by: Starr Jordan CC: Stacey Lagunas MD Technologist: Della Vargas RDMS Probe: Trnscrbd D/ (5492) GCD.CPS Orig Print D/T: S: 05/20/2022 (1452) [facility] NAME: GENARO WHEAT Radiology Department PHYS: PETCA. - Stacey Lagunas [address] : 1970 AGE: 51 SEX: F [place] [address] LOC: LaytonERS PHONE #: [phone] EXAMDATE: 05/20/2022 STATUS: REG ER FAX #: [phone] RAD NO: Page 1 Signed Report Patient Name: GENARO WHEAT Unit No: [id number] EXAMS: CPT CODE: [id number] US PELVIS COMPLETE 87352 (Continued) [facility] NAME: GENARO WHEAT Radiology Department PHYS: PETCA. - Stacey Lagunas [address] : 1970 AGE: 51 SEX: F [place], [place] [address] LOC: LaytonERS PHONE#: [phone] EXAM DATE: 05/20/2022 STATUS: REG ER FAX #: [phone] RAD NO: Page 2 Signed ReportCT/NG, NAAT, [id number] 17:32:21 Test Item Value Reference Range Interpretation Comments GONORRHEA, NAAT NEGATIVE NEGATIVE IMPORTA NT NOTICE: SEE (test code = [place] [address]) [email or web address] [email or web address] Note: Assay methodology is nucleic acid amplification b y automotive product engineer m ediated amplification ( TMA) utilizing the A ptima Combo 2 Assay. CHLAMYDIA, NAAT NEGATIVE NEGATIVE IMPORTA NT NOTICE: SEE (test code = [place] [address]) [email or web address] [employer]obasUrineKit Note: Assay methodology is nucleic acid amplification b y automotive product engineer m ediated amplification ( TMA) utilizing the A ptima Combo 2 Assay. UNLESS OTHERWISE INDICATED, ALL TESTING PERFORMED [facility] [address] [place] [address] DIRECTOR: VIVIANA SAENZ M.D. [place] NUMBER [id number] CAP ACCREDITATION N O. [id number] PAP TEST, THINPREP, [id number] 10:50:49 Test Item Value Reference Range Interpretation Comments SOURCE: (test Cervical/Endoce code = 8001) rvical SLIDES: (test 1 code = 8011) LMP: (test code 04/04/2011 = 8021) SPECIMEN (NOTE) Satisfactory f or ADEQUACY: (test evaluation. code = 61134) Endocervical cells/transform ation zone component present. INTERPRETATION: NILM/NO EPITH. (test code = ABNORMALITY;SEE 17260) BELOW -------- - NEGATIVE FOR INTRAEPITHELIAL LESION OR MALIGNANCY ( NILM) -------- -------- -------- ---- FINANCE CONTROLLER Avelino : (test code = Cancelli 8101) LOCATION: (test (NOTE) Specimens pr ocessed and code = 82950) [facility] at [facility], [address], [place] [address], Phone: , CLIA: [id number] CPT: (test code (NOTE) 12967 UNLESS OTHERWISE = 8140) INDICATED, COMP UTER AIDED AND CYTOTECHNOLOGIS T SCREENING PERFO RMED. The Pap test is a screening test with an inherent, but l ow probability of error. Your patient sh ould be reminded to con sult you immediately if she experiences any suspicious sign s or symptoms, regar dless of her Pap test re sult. An alternate repor t format containing imag es or consolidated pr ior Pap history is avai lable as applicable. HPV HIGH RISK WITH GENOTYPE, [id number] 10:43:14 Test Item Value Reference Range Interpretation Comments HPV HIGH RISK INTERP NEGATIVE NEGATIVE (test code = 57973) HPV 16 (test code = NEGATIVE 75380) HPV 18 (test code = NEGATIVE 24260) HPV, HR, OTHER NEGATIVE Testing meth odology is GENOTYPES (test code real-ti me PCR utilizing = 40710) hydrolysis prob es with the [employer] 4800 system. The marlon t individually de tects genotypes 16 an d 18, as well as the oth er 12 high risk types (31,33,35,39,45 ,51,52,56 ,58,59,66,68). The expected result is negative. A neg ative result does not rule out the presence of HPV not included in the genotype set, a low leve l of infection or sp ecimen sampling error. UNLESS OTHERWISE INDIC ATED, ALL TESTING PERFORM [facility], [place]. [address] [place] [address] LABORATORY DIRE CTOR: VIVIANA MELENDEZ M.D. CLIA NUMBER [id number] [place] [id number] VAGINAL PATHOGENS DNA [id number] 14:40:09 Test Item Value Reference Range Interpretation Comments SURESH SPECIES (test code = 38264) NEGATIVE NEGATIVE G. VAGINALIS (test code = 79723) POSITIVE NEGATIVE A T. VAGINALIS (test code = 51290) NEGATIVE NEGATIVE [id number] 15:35:00 Test Item Value Reference Range Interpretation Comments POC Sodium (test code = POC Sodium) 144 135-145 [facility][id number] 15:35:00 Test Item Value Reference Range Interpretation Comments POC Potassium (test code = POC 3.9 3.5-5.1 Potassium) [id number] 15:35:00 Test Item Value Reference Range Interpretation Comments POC Chloride (test code = POC Chloride) 103 95-109 [facility] Ce[id number] 15:35:00 Test Item Value Reference Range Interpretation Comments POC Carbon Dioxide (test code = POC 25 24-32 Carbon Dioxide) [facility] [id number] 15:35:00 Test Item Value Reference Range Interpretation Comments POC BUN (test code = POC BUN) 11 7-22 [facility] [id number] 15:35:00 Test Item Value Reference Range Interpretation Comments POC Creatinine (test code = POC 0.6 0.5-1.4 Creatinine) [facility] C[id number] 15:35:00 Test Item Value Reference Range Interpretation Comments POC Glucose (test code = POC Glucose) 90 70-99 [facility] C[id number] 15:35:00 Test Item Value Reference Range Interpretation Comments POC Ion Ca (test code = POC Ion Ca) 1.28 1.05-1.25 [facility] Ce[id number] 15:35:00 Test Item Value Reference Range Interpretation Comments POC Hemoglobin (test code = POC 14.6 12.0-16.0 Hemoglobin) [facility] Center[id number] 15:35:00 Test Item Value Reference Range Interpretation Comments POC Hematocrit (test code = POC 43.0 36.0-48.0 Hematocrit) [facility] [id number] 15:35:00 Test Item Value Reference Range Interpretation Comments POC AGAP (test code = POC AGAP) 21.0 10.0-20.0 [facility] CenterDwpqdirTVJAQPSVXTSJ0187-69-23 15:35:00 Test Item Value Reference Range Interpretation Comments eGFR (test code = eGFR) 108 [facility] TexasNplomlxPLSXVTXEEX4898-97-86 14:33:00 Test Item Value Reference Range Interpretation Comments Coronavirus (COVID-19) Not Detected (11/17/20 SHRAVAN (test code = 9:33 AM) Coronavirus (COVID-19) SHRAVAN) [place] [facility] TEST, [id number] 08:23:00 Test Item Value Reference Range Interpretation Comments PREG SERUM (test code Negative = 6078311854) BOY (test code = BOY) Less than 10 IU/L. ?If low titer or ectopic is suspected, resubmit specimen in 48-72 hours. [facility] B RSV [id number] 07:49:00 Test Item Value Reference Range Interpretation Comments Influenza A virus by PCR (test code Negative Negative = 16332-6) Influenza B virus by PCR (test code Negative Negative = 98548-1) RSV by PCR (test code = 33419-7) Negative Negative Lab Interpretation (test code = Normal 22728-3) [facility]22[facility]00 Test Item Value Reference Range Interpretation Comments APPEARANCE (test code = Clear Clear 7932508203) COLOR (test code = Yellow Yellow 6016025953) PH (test code = 4.8-8.0 5746125931) SP GRAVITY (test code = 1.003-1.030 9225452803) GLU U QUAL (test code = Normal Normal 9973096599) BLOOD (test code = Negative Negative 4882438371) KETONES (test code = 80 mg/dL Negative A 6123385156) PROTEIN (test code = Negative Negative 2887-8) UROBILIN (test code = Normal Normal 1727174157) BILIRUBIN (test code = Negative Negative 7781490618) NITRITE (test code = Positive Negative A 0734124331) LEUK ROSS (test code = 250/uL Negative A 3861074885) RBC/HPF (test code = See_Comment [Autom ated message] 4362808080) The system [employer] generated this result transmitted ref erence range: 0 - 3 HP F. The reference range was not used to int erpret this result as normal/abnormal . WBC/HPF (test code = See_Comment H [Autom ated message] 1164384127) The system whic h generated this result transmitted ref erence range: 0 - 5 HP F. The reference range was not used to int erpret this result as normal/abnormal . BACTERIA (test code = Many Negative A 3116661932) MUCOUS (test code = Slight Negative LPF A 0593347335) SQ EPITH (test code = See_Comment [Auto mated message] 0853519843) The system [employer] IZEA generated this result transmitted ref erence range: <=2 HPF. The reference range was not used to int erpret this result as normal/abnormal . Lab Interpretation (test Abnormal code = 17447-9) [facility] WITH [id number] 06:30:00 Test Item Value Reference Range Interpretation Comments WBC (test code = See_Comment [Automated 7890-2) message] The sy stem which generated this result transmitted reference range : 4.30 - 11.10 10*3/?L. The reference range was not used to interpret this result as normal/abnormal . RBC (test code = See_Comment [Automated 829-8) message] The sy stem which generated this [...] RDW-SD (test code = 45.0 fL 39-49.9 56148-7) RDW-CV (test code = 13.8 % 12-15.5 788-0) PLT (test code = See_Comment [Automated 777-3) message] The sy stem which generated this result transmitted reference range : 166 - 358 10*3/ ?L. The reference r josh was not used to interpret this result as normal/abnormal . MPV (test code = 10.3 fL 9.5-12.9 76285-4) NRBC/100 WBC (test See_Comment [Automat ed code = 5594287133) message] The system which generated this result transmitted reference range : 0.0 - 10.0 /100 WBCs. The refer ence range was not u sed to interpret th is result as normal/abnormal . NRBC x10^3 (test code <0.01 See_Comment [Auto mated = 6906556738) message] The s ystem which generated this result transmitted reference range : 10*3/?L. The reference range was not used to interpret this result as normal/abnormal . GRAN MAT (NEUT) % 31.5 % (test code = 770-8) IMM GRAN % (test code 0.10 % = 6103224115) LYMPH % (test code = 60.1 % 736-9) MONO % (test code = 7.0 % 5905-5) EOS % (test code = 0.9 % 713-8) BASO % (test code = 0.4 % 706-2) GRAN MAT x10^3(ANC) 2.36 10*3/uL 1.88-7.09 (test code = 3547261099) IMM GRAN x10^3 (test <0.03 0-0.06 code = 5524984986) LYMPH x10^3 (test code 4.52 10*3/uL 1.32-3.29 H = 731-0) MONO x10^3 (test code 0.53 10*3/uL 0.33-0.92 = 742-7) EOS x10^3 (test code = 0.07 10*3/uL 0.03-0.39 711-2) BASO x10^3 (test code 0.03 10*3/uL 0.01-0.07 = 704-7) REACT LYMPHS (test Rare code = 5205940231) Lab Interpretation Abnormal (test code = 57985-6) [facility] [id number] 06:17:00 Test Item Value Reference Range Interpretation Comments TROPONIN I (test 0.001 ng/mL See_Comment [Automated code = 0918752447) message] The system which generated this result [...] ? Lab Interpretation Normal (test code = 71198-8) [facility] ([id number])2019-05-09 06:13:00 Test Item Value Reference Range Interpretation Comments NA (test code = 140 mmol/L 135-145 2754210562) K (test code = 4.0 mmol/L 3.5-5 0301331763) CL (test code = 103 mmol/L 98-108 2358071924) CO2 TOTAL (test code = 22 mmol/L 23-31 L 7219735461) AGAP (test code = 2-16 2383980997) BUN (test code = 12 mg/dL 7-23 7426602841) GLUCOSE (test code = 75 mg/dL 70-110 6398498447) CREATININE (test code = 0.59 mg/dL 0.5-1.04 6551899954) TOTAL BILI (test code = 0.5 mg/dL 0.1-1.1 0043124757) CALCIUM (test code = 9.4 mg/dL 8.6-10.6 9040399742) T PROTEIN (test code = 8.1 g/dL 6.3-8.2 2219282587) ALBUMIN (test code = 4.6 g/dL 3.5-5 5211707420) ALK PHOS (test code = 68 U/L 34-122 1477131689) ALTv (test code = 24 U/L 5-35 1742-6) AST(SGOT) (test code = 47 U/L 13-40 H 0906403882) eGFR Calculation mL/min/1.73m2 (Non-) (test code = 1475579128) eGFR Calculation mL/min/1.73m2 () (test code = 1190403159) BOY (test code = BOY) Association of [...] tests). Lab Interpretation Abnormal (test code = 61936-4) [facility]IP[facility], [id number] 06:13:00 Test Item Value Reference Range Interpretation Comments LIPASE (test code = 4461329622) 69 U/L 0-220 Lab Interpretation (test code = Normal 58022-9) [facility] 06:05:00 Test Item Value Reference Range Interpretation Comments APTT Patient (test code = See_Comment [ Automated message] 3173-2) The system whic h generated this result transmitted ref erence range: 26 - 36 Seconds. The re ference range was not u sed to interpret this result as normal/abnor mal. Lab Interpretation (test Normal code = 69799-6) [facility] / [id number] 06:05:00 Test Item Value Reference Range Interpretation Comments PROTIME PATIENT (test See_Comment [Auto mated message] code = 5964-2) The system wh ich generated this result transmitted ref erence range: 10.1 - 1 2.6 Seconds. The re ference range was not u sed to interpret this result as normal/abnor mal. INR (test code = 6301-6) Nor mal INR <1.1; Warfarin Therap eutic range 2.0 to 3. 0 or 2.5 to 3.5, dep ending upon the indica tions. Lab Interpretation (test Normal code = 48009-5) [facility] Notes Date/Time Note Provider Source 2022-05-20 12:52:00-00:[address] [facility] ([facility]) EMERGENCY PROVIDER REPORT REPORT#:[id number] REPORT STATUS: Signed DATE:05/20/22 TIME: 1251 PATIENT: GENARO WHEAT UNIT #: [id number] ROOM/BED: AGE: 51 SEX: F PCP PHYS: No Primary or Family Ph ysician SERVICE AUTHOR: Stacey Lagunas MD * ALL edits or amendments must be made on the el [employer]/computer document * HPI- Female Free Text HPI Notes Free Text HPI Notes 46yo HF with PMH of uterine fibroid p/w pelvic p ain x3 days. Associated with occasional dysuria and vaginal discharge (green; foul smell). Onset after unprotected sex with new partner (last involveme nt 2 weeks ago). General Initial Greet Date/Time 05/20/22 1252 Presentation Chief Complaint Pelvic pain Hx Obtained From Patient )( Sudden in Onset? No Review of Systems ROS Statements All systems rev neg except as marked. Focused Review of Systems Constitutional Denies: Chills, Fever, Lethargy. GI Denies: Abdominal pain, Diarrhea, Nausea, Vomiti ng. Female Reports: Dysuria, Pelvic pain, Vaginal discharge . Musculoskeletal Denies: Back pain, Extremity pain. Endocrine Denies: Polyuria, Weight loss. Skin Denies: Diaphoresis, Rash. Neurologic Denies: Change LOC, Dizziness, Focal weakness, H eadache, Numbness, Slurred speech. Past Medical History - Adult Stated Complaint PELVIC PAIN, VOMITING, HODGE Allergies Coded Allergies: No Known Allergies (05/20/22) Other Social History Local resident Physical Exam Vital Signs Vital Signs First Documented: Result Date Time Pulse Ox 97 05/20 1259 B/P 109/67 05/20 1259 B/P Mean 81 05/20 1259 O2 Delivery Room air 05/20 1259 Temp 98.2 05/20 1259 Pulse 71 05/20 1259 Resp 18 05/20 1259 Last Documented: Result Date Time Pulse Ox 97 05/20 1259 B/P 109/67 05/20 1259 B/P Mean 81 05/20 1259 O2 Delivery Room air 05/20 1259 Temp 98.2 05/20 1259 Pulse 71 05/20 1259 Resp 18 05/20 1259 Review of Vital Signs Reviewed, Vital signs norm al Focused PE General/Const General/Const Awake, Alert, Well appearing Resp/Chest Respiratory/Chest Breath sounds NL, Breath soun ds = bilat, No respiratory distress, No rales, No rhonchi, No wheezing Cardiovascular Cardiovascular Heart rate NL, Regular rhythm, H eart sounds NL, Peripheral circulation NL Abdomen/GI Abdomen/GI Soft, Non-tender, No guarding, No re bound MS Back Back Inspection NL, Non-tender, No CVA tenderne ss Skin Skin Color NL, No rash, Warm, Dry, Turgor NL Genitourinary General [employer] Senior Executive present Female Genitourinary External genitalia NL, No bleeding, No cervical motion tend, Os closed, No adnexal mass, No adnexal tenderness, No uterine enlargement, No uterine mass, No lesions or rash Vaginal Bleeding/Discharge Discharge thin, Discharge scant. Interpretation Diagnostics Lab Results Interpretation Results Laboratory Tests: 05/20 05/20 1355 1325 Serology Chlamydia DNA Probe (Not Detecte) NOT DETECTED N.gonorrhoeae DNA Probe (Not Detecte) NOT DETE CTED Urines Urine Color (YELLOW) COLORLESS Urine Appearance (CLEAR) CLEAR Urine pH (5 - 9) 7.0 Ur Specific [place] (1.001 - 1.035) 1.002 Urine Protein (NEG) NEGATIVE Urine Glucose (UA) (NEG) NEGATIVE Urine Ketones (NEG) NEGATIVE Urine Blood (NEG) NEG Urine Nitrite (NEG) NEG Urine Bilirubin (NEG) NEGATIVE Urine Urobilinogen (NEG mg/dL) NEGATIVE Ur Leukocyte Esterase (NEG) NEG Urine RBC (NONE SEEN #/hpf) 0-2 Urine WBC (NONE SEEN #/hpf) 0-2 Ur Epithelial Cells (RARE - FEW #/HPF) RARE Urine HCG, Qual NEGATIVE Microbiology: Date/Time Procedure - Status Source Growth 05/20 1355 Wet Prep - COMP VAGINAL Recent Impressions: ULTRASOUND - US TRANSVAGINAL W/PELVIS 05/20 1401 Report Impression - Status: SIGNED Entered: 05/20/2022 145 IMPRESSION: 1. Small uterine fibroids. 2. Otherwise, unremarkable exam. Impression By: Starr Sanchez ULTRASOUND - DUP AB/PEL/SC/LTD 05/20 1401 Report Impression - Status: SIGNED Entered: 05/20/2022 1452 IMPRESSION: 1. Small uterine fibroids. 2. Otherwise, unremarkable exam. Impression By: Starr Sanchez ULTRASOUND - US PELVIS COMPLETE 05/20 1401 Report Impression - Status: SIGNED Entered: 05/20/2022 1452 IMPRESSION: 1. Small uterine fibroids. 2. Otherwise, unremarkable exam. Impression By: Starr Sanchez Lab Imaging Statement Laboratory radiographic studies reviewed and con sidered in the medical decision-making. Re-Evaluation MDM Free Text MDM Notes Free Text MDM Notes A/P: 51yo HF with PMH as above p/w pelvic pain 1. UA 2. Wet Mount 3. GC/Ch 4. Meds 5. Re-assess ADDENDUM Time: 1540 UA -ve. Wet mount without Tr ichomonas or BV. Pt re-assessed; symptoms improved. Results of work-up d/w Pt; v oiced understanding. Ok for DC home with PCP follow- up ED Course Medication(s) Ordered Medication(s) Ordered: Anti-Infective Agents Sig/Leo Start time Last Medication Dose Route Stop Time Status Admin Ceftriaxone Sodium 500 MG X1ED STA 05/20 1535 C ANr IM 05/20 1536 Cardiovascular Drugs Sig/Leo Start time Last Medication Dose Route Stop Time Status Admin Lidocaine HCl See Dose X1ED STA 05/20 1535 CANr Insts (1) IM 05/20 1536 Central Nervous System Agents Sig/Leo Start time Last Medication Dose Route Stop Time Status Admin Ketorolac 60 MG X1ED STA 05/20 1336 DC 05/20 Tromethamine IM 05/20 1337 1508 Gastrointestinal Drugs Sig/Leo Start time Last Medication Dose Route Stop Time Status Admin Ondansetron Base 4 MG ONCE ONE 05/20 1300 DC SL 05/20 1301 1259 Dose Instructions: (1)Lidocaine HCl: Follow Reconstitution Instruction Patient Discharge Departure Vital Signs/Condition Vital Signs First Documented: Result Date Time Pulse Ox 97 05/20 1259 B/P 109/67 05/20 1259 B/P Mean 81 05/20 1259 O2 Delivery Room air 05/20 1259 Temp 98.2 05/20 1259 Pulse 71 05/20 1259 Resp 18 05/20 1259 Last Documented: Result Date Time Pulse Ox 97 05/20 1259 B/P 109/67 05/20 1259 B/P Mean 81 05/20 1259 O2 Delivery Room air 05/20 1259 Temp 98.2 05/20 1259 Pulse 71 05/20 1259 Resp 18 05/20 1259 All vital signs available at the time of this en try have been reviewed. Clinical Impression Clinical Impression Primary Impression: PID (acute pelvic inflammato ry disease) Secondary Impressions: Pelvic pain Disposition Decision Discharge )( Discharged to Home Yes )( Time 1554 )( Date 05/20/22 Discharge/Care Plan Counseled Regarding Diagnosi s, Lab results, Imaging studies, Prescriptions, Need for follow-up, When to return to ED (Auto) Prescriptions Current Visit Scripts DOXYCYCLINE MONOHYDRATE (ADOXA) 100 MG PO BID 14 Days #28 TABS metroNIDAZOLE (FLAGYL) 500 MG PO BID 14 Days #28 TABS FLUCONAZOLE (DIFLUCAN) 150 MG PO ONCE FLUCONAZOLE (DIFLUCAN) 150 MG PO ONCE #1 TAB Patient Instructions ED Pelvic Inflammatory Dise ase Additional Instructions Follow-up with [facility] for [facility]. Referrals Provider Referral: Hafsa Del Toro MD Address: [address] [place] [address] Discharge Note I have spoken with the patie nt and/or caregivers. I have explained the patient's condition, diagnoses and rambo atment plan based on the information available to me at this time. I have answered the patient's and/ or caregiver's questions and addressed any concerns. The patient and/or careg shabana have as good an understanding of the patient 's diagnosis, condition and treatment plan as can be expected at this point. The vital signs have bee n stable. The patient's condition is stable and appr opriate for discharge from the emergency department. The patient will pursue further outpatient evalu ation with the primary care physician or other designated or consulting phys ician as outlined in the discharge instructions. The patient and/or caregivers are agreeable to this plan of care and follow-up instructions have been exp lained in detail. The patient and/or caregivers have received these instructio ns in written format and have expressed an understanding of the discharge inst ructions. The patient and/or caregivers are aware that any significant change in condition or worsening of symptoms should prompt an immediate return to [facility] or the closest emergency department or a call to 911. at 1630 RPT #:[id number] END OF REPORT"
--- NOTE | 2022-08-19 11:34 | EDPHYS ---
Physician Documentation [facility] Name: Denis Sanchez Age: 51 yrs Sex: Female : 1970 Arrival Date: 08/19/2022 Time: 10:20 Bed IW1 Private MD: ED Physician Junior Mathews HPI: 08/19 11:27 This 51 yrs old Female presents to ER via EMS with complaints of Anxiety. edi 11:27 The patient presents to the emergency department with anxiety, over unknown edi circumstances. Onset: The symptoms/episode began/occurred just prior to arrival, this morning. Past psychiatric history: Prior diagnosis: addiction history, bipolar disorder, ADHD. Associated signs and symptoms: The patient has no apparent associated signs or symptoms. Severity of symptoms: At their worst the symptoms were mild moderate in the emergency department the symptoms are unchanged. The patient has not experienced similar symptoms in the past. Historical: - Allergies: 10:27 No Known Allergies; kc6 - PMHx: 10:27 adhd; Bipolar disorder; depressive disorder; Seizure; Anxiety; kc6 - PSHx: 10:27 section; kc6 - Immunization history:: Adult Immunizations up to date. - Social history:: Smoking status: Patient denies any tobacco usage or history of. ROS: 11:28 Constitutional: Negative for fever, chills, and weight loss, Eyes: Negative for injury, edi pain, redness, and discharge, ENT: Negative for injury, pain, and discharge, Neck: Negative for injury, pain, and swelling, Cardiovascular: Negative for chest pain, palpitations, and edema, Respiratory: Negative for shortness of breath, cough, wheezing, and pleuritic chest pain, Abdomen/GI: Negative for abdominal pain, nausea, vomiting, diarrhea, and constipation, Back: Negative for injury and pain, : Negative for injury, bleeding, discharge, and swelling, MS/Extremity: Negative for injury and deformity, Skin: Negative for injury, rash, and discoloration, Neuro: Negative for headache, weakness, numbness, tingling, and seizure, Allergy/Immunology: Negative for hives, rash, and allergies, Endocrine: Negative for neck swelling, polydipsia, polyuria, polyphagia, and marked weight changes, Hematologic/Lymphatic: Negative for swollen nodes, abnormal bleeding, and unusual bruising. 11:28 Psych: Positive for anxiety, depression. Exam: 11:28 Constitutional: This is a well developed, well nourished patient who is awake, alert, edi and in no acute distress. Head/Face: Normocephalic, atraumatic. Eyes: Pupils equal round and reactive to light, extra-ocular motions intact. Lids and lashes normal. Conjunctiva and sclera are non-icteric and not injected. Cornea within normal limits. Periorbital areas with no swelling, redness, or edema. ENT: Nares patent. No nasal discharge, no septal abnormalities noted. Tympanic membranes are normal and external auditory canals are clear. Oropharynx with no redness, swelling, or masses, exudates, or evidence of obstruction, uvula midline. Mucous membranes moist. Neck: Trachea midline, no thyromegaly or masses palpated, and no cervical lymphadenopathy. Supple, full range of motion without nuchal rigidity, or vertebral point tenderness. No Meningismus. Chest/axilla: Normal chest wall appearance and motion. Nontender with no deformity. No lesions are appreciated. Cardiovascular: Regular rate and rhythm with a normal S1 and S2. No gallops, murmurs, or rubs. Normal PMI, no JVD. No pulse deficits. Respiratory: Lungs have equal breath sounds bilaterally, clear to auscultation and percussion. No rales, rhonchi or wheezes noted. No increased work of breathing, no retractions or nasal flaring. Abdomen/GI: Soft, non-tender, with normal bowel sounds. No distension or tympany. No guarding or rebound. No evidence of tenderness throughout. Back: No spinal tenderness. No costovertebral tenderness. Full range of motion. Skin: Warm, dry with normal turgor. Normal color with no rashes, no lesions, and no evidence of cellulitis. MS/ Extremity: Pulses equal, no cyanosis. Neurovascular intact. Full, normal range of motion. Neuro: Awake and alert, GCS 15, oriented to person, place, time, and situation. Cranial nerves II-XII grossly intact. Motor strength 5/5 in all extremities. Sensory grossly intact. Cerebellar exam normal. Normal gait. Psych: Awake, alert, with orientation to person, place and time. Behavior, mood, and affect are within normal limits. 11:28 Musculoskeletal/extremity: DVT Exam: No signs of deep vein thrombosis. no pain, no swelling, no tenderness, negative Homans' sign noted on exam, no appreciated bluish discoloration, no erythema, no increased warmth. Vital Signs: 10:23 BP 120 / 84; Pulse 87; Resp 19 S; Temp 98(TE); Pulse Ox 99% on R/A; Weight 77.11 kg kc6 (R); Height 5 ft. 5 in. ; 10:23 Body Mass Index 28.29 (77.11 kg, 165.1 cm) kc6 MDM: 10:29 Patient medically screened. edi 11:30 Differential diagnosis: drug withdrawal. acute psychotic break, depression, psychosis edi secondary to non-compliance. Data reviewed: vital signs, nurses notes. Consideration of Admission/Observation Escalation of care including admission/observation considered. Test considered but Not performed: Other Details PT LEFT FRO TRIAGE. Care significantly affected by the following chronic conditions: PSYCH, SEIZURES. Administered Medications: No medications were administered Disposition Summary: 08/19/22 11:33 Eloped Disposition: before being seen by provider edi Problem: an ongoing problem edi Symptoms: are unchanged edi Reason: unknown edi Condition: Undetermined edi Diagnosis - Anxiety disorder, unspecified edi - Bipolar disorder, unspecified edi Followup: edi - With: Private Physician - When: Upon discharge from the Emergency Department - Reason: Recheck today's complaints, Continuance of care, Re-evaluation by your physician Signatures: Junior Mathews MD MD cha Campbell, Kaitlyn RN RN kc6
--- NOTE | 2022-08-19 11:34 | ER ---
Nurse's Notes [facility] Name: Denis Sanchez Age: 51 yrs Sex: Female : 1970 Arrival Date: 08/19/2022 Time: 10:20 Bed IW1 Private MD: Diagnosis: Anxiety disorder, unspecified;Bipolar disorder, unspecified Presentation: 08/19 10:23 Chief complaint: EMS states: pt was at a hotel when he began to feel like she was going kc to have a seizure. states the patient walked out into the street because "she didn't want to have the seizure in the hotel." reports last seizure was approximately 1 week ago. Coronavirus screen: Vaccine status: Patient reports being unvaccinated. At this time, the client does not indicate any symptoms associated with coronavirus-19. Ebola Screen: No symptoms or risks identified at this time. Initial Sepsis Screen: Does the patient meet any 2 criteria? No. Patient's initial sepsis screen is negative. Does the patient have a suspected source of infection? No. Patient's initial sepsis screen is negative. Risk Assessment: Do you want to hurt yourself or someone else? Patient reports desire/thoughts of hurting themselves or someone else. Provider notified. Onset of symptoms was August 19, 2022. 10:23 Method Of Arrival: EMS: [facility] 6 10:23 Acuity: FAM 2 kc6 Triage Assessment: 10:27 General: Appears in no apparent distress. comfortable, Behavior is cooperative, kc6 appropriate for age, anxious, restless. Pain: Denies pain. EENT: No signs and/or symptoms were reported regarding the EENT system. Neuro: Cruz Agitation-Sedation Scale (RASS): +1 Restless Level of Consciousness is awake, alert, obeys commands, Oriented to person, place, time, situation, Appropriate for age. Cardiovascular: Capillary refill < 3 seconds. Respiratory: Airway is patent Trachea midline Respiratory effort is even, unlabored, Respiratory pattern is regular, symmetrical. GI: No signs and/or symptoms were reported involving the gastrointestinal system. : No signs and/or symptoms were reported regarding the genitourinary system. Derm: No signs and/or symptoms reported regarding the dermatologic system. Skin is intact, Skin is pink, warm \\T\\ dry. Musculoskeletal: No signs and/or symptoms reported regarding the musculoskeletal system. Circulation, motion, and sensation intact. Capillary refill < 3 seconds, Range of motion: intact in all extremities. Historical: - Allergies: 10:27 No Known Allergies; kc6 - PMHx: 10:27 adhd; Bipolar disorder; depressive disorder; Seizure; Anxiety; kc6 - PSHx: 10:27 section; kc6 - Immunization history:: Adult Immunizations up to date. - Social history:: Smoking status: Patient denies any tobacco usage or history of. Vital Signs: 10:23 BP 120 / 84; Pulse 87; Resp 19 S; Temp 98(TE); Pulse Ox 99% on R/A; Weight 77.11 kg kc6 (R); Height 5 ft. 5 in. ; 10:23 Body Mass Index 28.29 (77.11 kg, 165.1 cm) 6 ED Course: 10:23 Patient arrived in ED. mr 10:27 Triage completed. kc6 10:27 Arm band placed on. [facility] 10:29 Junior Mathews MD is Attending Physician. edi 10:40 not in lobby when called to see ER physician. 1 11:15 still not in lobby. Tried to call patients phone, no answer. Left without being seen. ll1 Administered Medications: No medications were administered Outcome: 11:43 Patient left the ED. ll1 Signatures: Junior Mathews MD MD cha Rivera, Mary mr ArambulaAbel, MONROE RN ll1 Ayala Joseph RN RN kc6 Corrections: (The following items were deleted from the chart) 10:30 10:23 Chief complaint: EMS states: pt was at a hotel when he began to feel lilke she kc6 was going to have a seizure. states the patient walked out into the street because she didn't want to have the seizure in the hotel. reports last seizure was approximately 1 week ago. kc6 10:59 10:23 Chief complaint: EMS states: pt was at a hotel when he began to feel like she was kc6 going to have a seizure. states the patient walked out into the street because "she didn't want to have the seizure in the hotel." reports last seizure was approximately 1 week ago. kc6
[2022-08-19 11:54] VITALS: BP 120/84; TEMP 98; O2SAT 99
== END 2022-08-19 11:43 | disposition left against medical advice (07) ==
LOC: ER 10:20
DX: Z53.21 Procedure and treatment not carried out due to patient leaving prior to being seen by health care provider (principal); F41.9 Anxiety disorder, unspecified; F31.9 Bipolar disorder, unspecified
CPT/HCPCS: 99282

== ENCOUNTER 2022-08-19 12:55 | Emergency (ER) | payer SELFPAY ==
--- OUTSIDE RECORDS SUMMARY | 2022-08-19 12:58 | XMS REPORT | Continuity of Care Document ---
:1970 Author Organization [facility] t Address [address] [facility] [address] [place] [address] Care Team Providers Name Role Phone Stacey [...] Clinician Date CHEST PAIN CHEST Diagnosis Active 2021-08-26 Memoria PAIN - 12:45:00 l Active 00:00: Wedron 08/20/2021 00 [facility] Z80.0 Z80.0 Diagnosis Active 2020-11-18 Mem oria Z12.10 Z12.10 8- 13:44:00 l Active 00:00: Valentin 11/12/2020 00 [facility] Z12.31 - Z12.31 - Diagnosis Active 2021-01-04 Memoria ENCNTR ENCNTR 10-22 15:39:00 l SCREEN SCREEN 00:01: Valentin MAMMOGRAM MAMMOGRAM 00 FOR MA FOR MA Active 10/22/2020 OPID [facility] No known No known Disease Unive rs active active ity of problems problems [facility] Allergies, Adverse Reactions, Alerts Allergy Allergy Status Severity Reaction(s) Onset Inactive Treating Comm ents Source Name Type Date Date Clinician No Known DA Active U [facility] 00 [facility] No Known DA Active U 2017-04 [facility] Allergie 1-02 [facility] 00 [facility] No Known DA Active U 2017-04 [facility] Allergie - Clear s 00:00: [place] 00 [facility] No Known DA Active U 2001-0 [facility] Contrast 1-30 Clear Allergie 00:00: Lamas s 00 [facility] No Known DA Active U 2001-0 [facility] Drug 1-30 Clear Allergie 00:00: Lamas s 00 [facility] No Known DA Active U 2001-0 [facility] Food 1-30 Clear Allergie 00:00: Lamas s 00 [facility] No Known DA Active U 2001-0 [facility] Other 1-30 Clear Allergie 00:00: Lamas s 00 [facility] No Known No Known Active Memori a Medicati Medicati l on on Wedron Allergie Allergie s s Social History Social Habit Start Date Stop Date Quantity Comments Source Sex Assigned At [facility] Social History 2014-09-03 [facility]44 Smoking Status Start Date Stop Date Source Unknown if ever smoked [facility] Medications Ordered Filled Start Stop Current Ordering Indication Dosage Frequency Signature Comments Components Source Medication Medication Date Date Medication? Clinician (SIG) Name Name Strattera Yes PO, QAM, 0 Me moria 11-18 Refill(s) l 14:45: Valentin 00 Wellbutrin 2021-0 Yes PO, 0 Memori a 8-17 Refill(s) l 14:45: Ambien 0 Yes PO, Memoria 8-17 Bedtime, 0 l 14:45: Refill(s) Trazodone 0 Yes PO, BID, 0 Me moria 8-17 Refill(s) l 14:45: Depakote 0 Yes PO, TID, 0 Mem oria 8-17 Refill(s) l 14:45: Wellbutrin 0 Yes PO, 0 Memori a 8-17 Refill(s) l 14:45: Ambien 0 Yes PO, Memoria 8-17 Bedtime, 0 l 14:45: Refill(s) Trazodone Yes PO, BID, 0 Me moria 8-17 Refill(s) l 14:45: Depakote 0 Yes PO, TID, 0 Mem oria 8-17 Refill(s) l 14:45: Strattera 0 Yes PO, QAM, 0 Me moria 8-17 Refill(s) l 14:45: Strattera 0 Yes PO, QAM, 0 Me moria 8-17 Refill(s) l 14:44: Strattera 0 Yes PO, QAM, 0 Me moria 8-17 Refill(s) l 14:44: cefTRIAXone 2019- No 1000mg 1,000 mg, Univers (ROCEPHIN) 05-09 02-05 IV ity of 1,000 mg in 09:15: 08:53 [place], [place] NaCl 0.9% 00 :00 ONCE, 1 Medical (NS) 50 mL dose, Wed Bran MINI-BAG 05/09/19 at 0315, 50 mL
Reas on for Anti-Infec tive: Documented Infection< br>Documen courtney Infection Site: Urine
D uration of Therapy: 7 days NaCl 0.9% 2019- No 1000mL at 999 Uni vers (NS) bolus 05-09 02-05 mL/hr, ity of infusion 07:45: 08:51 1,000 mL, Tay as 1,000 mL 00 :00 IV Medical Infusion, Branch ONCE, 1 dose, 05/09/19 at 0145, STAT sodium Yes 5mL 5 mL, Univers chloride 05-09 Intravenou ity o f (NS) 05:15: s, PRN, [place] injection 5 30 Starting Medi wayne mL 05/08/19 Branch at 2315, Until Discontinu ed, Routine, IV line flushing cephALEXin 2020- No [id number] 500mg Take 1 Univers (KEFLEX) 05-0916 capsule [...] 2019-05-09 08:21:00 124 mm[Hg] [facility] Diastolic blood 2019-05-09 08:21:00 90 mm[Hg[facility] Heart rate 2019-05-09 08:21:00 71 /min [facility] Respiratory rate 2019-05-09 08:16:55 20 /min [facility] Oxygen saturation in 2019-05-09 08:16:55 100 /min [facility] Arterial blood by [facility] Pulse oximetry Branch Body temperature 2019-05-09 04:51:00 36.5 Mariely [facility] Body weight 2019-05-09 04:51:00 86.198 kg [facility] Height 2021-08-21 02:07:00 167.64 cm Thiago Hanson BMI Calculated 2021-08-21 02:07:00 Flako tran Wedron Weight 2021-08-21 02:07:00 Thiago Hanson Systolic (mm Hg) 2021-08-21 02:07:00 Cedric Hanson Diastolic (mm Hg) 2021-08-21 02:07:00 Mercy Hanson Heart Rate 2021-08-21 02:07:00 [facility] Respitory Rate 2021-08-21 02:07:00 Flako Oneill Temperature Oral (F) 2021-08-21 02:07:00 98.3 F Thiago Hanson Height 2020-11-18 15:44:00 165.1 cm [facility] Valentin Weight 2020-11-18 15:44:00 [facility] BMI Calculated 2020-11-18 15:44:00 Flako Oneill Procedures Procedure Date / Time Performing Clinician Source Performed URINALYSIS 2019-05-09 06:49:00 Hayley Osor[facility] GALV ONLY - INFLUENZA A 2019-05-09 06:48:00 Hayley Osorio [facility] B RSV PCR [facility] LIPASE 2019-05-09 05:29:00 Hardy Serrano [facility] TEST, SERUM 2019-05-09 05:29:00 [facility] 2019-05-09 05:29:00 Hardy Serrano [facility] COMP. METABOLIC PANEL 2019-05-09 05:29:00 Hardy Serrano [facility] ([id number]) [facility] CBC WITH DIFFERENTIAL 2019-05-09 05:29:00 [facility] PROTHROMBIN TIME / INR 2019-05-09 05:29:00 Hardy Serrano [facility] ACTIVATED PARTIAL 2019-05-09 05:29:00 Hardy Serrano [facility] THRMPLAS [facility] EXTRA TUBE ORANGE 2019-05-09 05:29:00 Hardy Serrano [facility] EKG-12 LEAD 2019-05-09 05:16:51 Hardy Serrano [facility] Encounters Start End Encounter Admission Attending Care Care Encounter Source Date/Time Date/Time Type Type Clinicians Facility Department ID 2022-05-20 2022-05-20 Emergency [id number] [facility] 12:49:00 16:36:00 [facility] 2021-08-21 2021-08-21 Emergency nullFlavo [facility] [id number] Memoria 02:00:00 05:03:00 r Valentin 01 l [facility] 2021-08-21 2021-08-21 Emergency nullFlavo [facility] [id number] Memoria 02:00:00 05:03:00 r Valentin 01 l [facility] 2021-08-20 2021-08-21 Outpatient Mamadou [facility] [id number] 21:00:00 00:03:00 Laura Chavez 2021-08-20 2021-08-21 Emergency E MAMADOU [facility] 7501 [facility] 21:00:00 00:03:00 LAURA 2020-11-18 2020-11-18 Bedded [facility] [id number] Memoria 14:25:00 17:45:00 Outpatient r Wedron [address] [facility] 2020-11-18 2020-11-18 Bedded [facility] [id number] Memoria 14:25:00 17:45:00 Outpatient r Wedron [address] [facility] 2020-11-18 2020-11-18 Outpatient [facility] [id number] 09:25:00 12:45:00 Mouhamad 00 [facility] 2020-11-18 2020-11-18 Outpatient [facility] 621 [id number] 09:25:00 12:45:00 Mouhamad 00 [facility] 2020-11-18 2020-11-18 Outpatient [facility] [id number] Memoria 09:25:00 12:45:00 [facility]AMAD l [facility] 2019-05-08 2019-05-09 Emergency Osorio, TRAUMA [id number] Univers 22:55:48 03:03:00 Hayley DERAS 350.1.13.10 [id number] [id number] Branch 2014-09-03 2014-09-03 Outpatient NADIA NICOLE [id number] Memoria 18:00:00 18:00:00 00 abrahan Hanson 2014-09-03 2014-09-03 [id number] [facility] 18:00:00 18:00:00 00 l Valentin Results Test Description Test Time Test Comments Results Result Comments Source CHLAMYDIA GC DNA BY PCR 2022-05-20 15:52:00 Test Item Value Reference Range Interpretation Comme nts C. TRACHOMATIS DNA BY PCR NOT DETECTED Not Detecte (test code = CHLAMTDNA) N. GONORRHOEAE DNA BY PCR NOT DETECTED Not Detecte TE ST PERFORMED USING THE (test code = NGONORDNA) Me[employer] BETTE GENEXPERT BY PCR.FALSE NEGAT DANIEL RESULTS MAY OCCUR IF TH E ORGANISM(S) ISPRESENT AT LE VELS BELOW THE ANALYTICAL LIMI T OD DETECTION.BECAU SE THE DETECTION OF CH LAMYDIA TRACHOMATIS AND NEISSERIA GONORRHOEAE IS DEPENDENT ON THE DNA PRESENT INTHE SAMPLE, RELIABLE RESULT S ARE DEPENDENT ON [place] OPER SAMPLECOLLECTIO N, HANDLING, AND STORAGE. Comments to Dba Developer: from urineUA RFLX MICR CULT IF [id number] 14:33:00 Test Item Value Reference Range Interpretation [...] culture: Suprapubic PainSpecimen Description: CLEAN CATCHUR HCG [id number] 14:33:00 Test Item Value Reference Range Interpretation Comments UR HCG QUAL (test NEGATIVE 1. Very di lute urine code = HCGQLU) specimens, as indicated by a lowspecific g ravity, may not contain rep resentative levels ofhCG. 2 . False negative result s may occur when the levels of hCGare below the sensi tivity level of the test. If is still suspec courtney, a first morningurine sp ecimen should be colle cted 48 hours later and tested. Indication for culture: Suprapubic PainSpecimen Description: CLEAN CATCH- DUP AB/PEL/SC/[id number] 00:00:00 [facility] 1970 Sex: F Patient Name: GENARO WHEAT Unit No: [id number] EXAMS: CPT CODE: [id number] DUP AB/PEL/SC/LTD 66669 PROCEDURE INFORMATION: Exam: US Pelvis Complete (Transabdominal), [...] Technologist: Della Vargas RDMS Probe: Trnscrbd D/ (2932) GCD.CPS Orig Print D/T: S: 05/20/2022 (1452) [facility] NAME: GENARO WHEAT Radiology Department PHYS: GAMALIELCA. - Stacey Lagunas [address] : 1970 AGE: 51 SEX: F [place] [address] LOC: LaytonERS PHONE #: [phone] EXAMDATE: 05/20/2022 STATUS: REG ER FAX #: [phone] RAD NO: Page 1 Signed Report Patient Name: GENARO WHEAT Unit No: [id number] EXAMS: CPT CODE: [id number] DUP AB/PEL/SC/LTD 47922 (Continued) [facility] NAME: GENARO WHEAT Radiology Department PHYS: GAMALIELCA. - Stacey Lagunas [address] : 1970 AGE: 51 SEX: F [place] [address] LOC: LaytonERS PHONE #: [phone] EXAM DATE: 05/20/2022 STATUS: REG ER FAX #: [phone] RAD NO: Page 2 Signed Report- US TRANSVAGINAL W/PELVIS 2022-05-20 00:00:00 [facility] : 1970 Sex: F Patient Name: GENARO WHEAT Unit No: [id number] EXAMS: CPT CODE: [id number] US TRANSVAGINAL W/PELVIS 04382 PROCEDURE INFORMATION: Exam: US Pelvis Complete (Transabdominal), [...] mm in the anterior mid uterus. Right ov josey/adnexa: Measures 2.1 x 1.2 x 1.4 cm. [...] Jordan CC: Stacey Lagunas MD Technologist: Della Vargas, [facility] [[email or web address]] Probe: [id number] Trnscrbd D/ (1452) GCD.CPS Orig Print D/T: S: 05/20/2022 (7042) [facility] NAME: GENARO WHEAT Radiology Department PHYS: JAGDISH. - Stacey Lagunas [address] : 1970 AGE: 51 SEX: F [place] [address] [facility] PH[facility] #: [phone] EXAM DATE: 05/20/2022 STATUS: REG ER FAX #: [phone] RAD NO: Page 1 Signed Report Patient Name: GENARO WHEAT Unit No: [id number] EXAMS: CPT CODE: [id number] US TRANSVAGINAL W/PELVIS 97270 (Continued) [facility] NAME: GENARO WHAET Radiology Department PHYS: JAGDISH. -Stacey Lagunas [address] : 1970 AGE: 51 SEX: F [place] [address] LOC: LaytonERS PHONE #: [phone] EXAM DATE: 05/20/2022 STATUS: REG ER FAX #: [phone] RAD NO: Page 2 Signed Report- US PELVIS COMPLETE 2022-05-20 00:00:00 [facility] : 1970 Sex: F Patient Name: GENARO WHEAT Unit No: [id number] EXAMS: CPT CODE: [id number] US PELVIS COMPLETE 61220 PROCEDURE INFORMATION: Exam: US Pelvis Complete (Transabdominal), [...] Technologist: Della Vargas RDMS Probe: Trnscrbd D/ (9592) GCD.CPS Orig Print D/T: S: 05/20/2022 (1452) [facility] Rad[facility] Department PHYS: PETRODRIGUEZ.Scott - Stacey Lagunas D [address] : 1970 AGE: 51 SEX: F [place], [place] [address] LOC: LaytonERS PHONE #: [phone] EXAM DATE: 05/20/2022 STATUS: REG ER FAX #: [phone] RAD NO: Page 1 Signed Report Patient Name: GENARO WHEAT Unit No: [id number] EXAMS: CPT CODE: [id number] US PELVIS COMPLETE 76541 (Continued) [facility] NAME: GENARO WHEAT Radiology Department PHYS: PETCA. - JannethStacey guadalupe D [address] : 1970 AGE: 51 SEX: F [place], [place] [address] LOC: LaytonERS PHONE #: [phone] EXAM DATE: 05/20/2022 STATUS: REG ER FAX #: [phone] RAD NO: Page 2 Signed ReportCT/NG, NAAT, [id number] 17:32:21 Test Item Value Reference Range Interpretation Comments GONORRHEA, NAAT NEGATIVE NEGATIVE IMPORTA NT NOTICE: SEE (test code = [place] [address]) [email or web address] Note: Assay methodology is nucleic acid amplification b y contact lens flashing puncher m ediated amplification ( TMA) utilizing the A ptima Combo 2 Assay. CHLAMYDIA, NAAT NEGATIVE NEGATIVE IMPORTA NT NOTICE: SEE (test code = [place] [address]) [email or web address] Social Market AnalyticsKit Note: Assay methodology is nucleic acid amplification b y contact lens flashing puncher m ediated amplification ( TMA) utilizing the A ptima Combo 2 Assay. UNLESS OTHERWISE INDICATED, ALL TESTING PERFORMED [facility] [address] [place] [address] [facility] DIRECTOR: VIVIANA SAENZ M.D. CLIA NUMBER [id number] CAP ACCREDITATION N O. [id number] PAP TEST, THINPREP, [id number] 10:50:49 Test Item Value Reference Range Interpretation Comments SOURCE: (test Cervical/Endoce code = 8001) rvical SLIDES: (test 1 code = 8011) LMP: (test code 04/04/2011 = 8021) SPECIMEN (NOTE) Satisfactory f or ADEQUACY: (test evaluation. code = 75492) Endocervical cells/transform ation zone component present. INTERPRETATION: NILM/NO EPITH. (test code = ABNORMALITY;SEE 16499) BELOW -------- - NEGATIVE FOR INTRAEPITHELIAL LESION OR MALIGNANCY ( NILM) -------- -------- -------- ---- GATEMAN Avelino : (test code = Cancelli 8101) LOCATION: (test (NOTE) Specimens pr ocessed and code = 61817) interpreted at [facility], [address] [place] [address] 4, Phone: , CLIA: [id number] CPT: (test code (NOTE) 88107 UNLESS OTHERWISE = 8140) INDICATED, COMP UTER [...] consolidated pr ior Pap history is avai lababiola as applicable. HPV HIGH RISK WITH GENOTYPE, [id number] 10:43:14 Test Item Value Reference Range Interpretation Comments HPV HIGH RISK INTERP NEGATIVE NEGATIVE (test code = 02452) HPV 16 (test code = NEGATIVE 21837) HPV 18 (test code = NEGATIVE 54469) HPV, HR, OTHER NEGATIVE Testing meth odology is GENOTYPES (test code real-ti me PCR utilizing = 89302) hydrolysis prob es with the Georgina Pietro 4800 system. The marlon t individually de [...] TESTING PERFORM ED [facility], [address] [address] LABORATORY DIRE CTOR: VIVIANA MELENDEZ M.D. CLIA NUMBER [id number] [place] [id number] VAGINAL PATHOGENS DNA [id number] 14:40:09 Test Item Value Reference Range Interpretation Comments SURESH SPECIES (test code = 89173) NEGATIVE NEGATIVE G. VAGINALIS (test code = ) POSITIVE NEGATIVE A T. VAGINALIS (test code = 71484) NEGATIVE NEGATIVE [id number] 15:35:00 Test Item Value Reference Range Interpretation Comments POC Chloride (test code = POC Chloride) 103 95-109 [facility]MjetxfxLAMMAZIKHKDY4494-87-23 15:35:00 Test Item Value Reference Range Interpretation Comments POC Carbon Dioxide (test code = POC 25 24-32 Carbon Dioxide) [facility] CenterAdbclsyBLQHGBIJCHHS6623-01-86 15:35:00 Test Item Value Reference Range Interpretation Comments POC BUN (test code = POC BUN) 11 7-22 [facility] CenterQehcdsvXKPXWWVHKMEK1178-33-35 15:35:00 Test Item Value Reference Range Interpretation Comments POC Creatinine (test code = POC 0.6 0.5-1.4 Creatinine) [facility]ikvvBJGMHUOHDBYH6765-87-86 15:35:00 Test Item Value Reference Range Interpretation Comments POC Glucose (test code = POC Glucose) 90 70-99 [place] [id number] 15:35:00 Test Item Value Reference Range Interpretation Comments POC Ion Ca (test code = POC Ion Ca) 1.28 1.05-1.25 [place] [id number] 15:35:00 Test Item Value Reference Range Interpretation Comments POC Hemoglobin (test code = POC 14.6 12.0-16.0 Hemoglobin) [facility] HospitalBlpnnojOXYIJRRXXHOQ0601-23-77 15:35:00 Test Item Value Reference Range Interpretation Comments POC Sodium (test code = POC Sodium) 144 135-145 [place] 366651-08-17 15:35:00 Test Item Value Reference Range Interpretation Comments POC Potassium (test code = POC 3.9 3.5-5.1 Potassium) [facility] HospitalWatiefoQQLFWOWDDCRP1330-93-41 15:35:00 Test Item Value Reference Range Interpretation Comments POC Chloride (test code = POC Chloride) 103 95-109 [facility] HospitalGtsbpgjDFGFRSWGQKUL1778-91-43 15:35:00 Test Item Value Reference Range Interpretation Comments POC Carbon Dioxide (test code = POC 25 24-32 Carbon Dioxide) [facility] HospitalFkpfzjdNQXKPMTPHOQS7801-43-54 15:35:00 Test Item Value Reference Range Interpretation Comments POC BUN (test code = POC BUN) 11 7-22 [facility] HospitalKuxvopfWNCVRNYRICFQ6036-25-48 15:35:00 Test Item Value Reference Range Interpretation Comments POC Hematocrit (test code = POC 43.0 36.0-48.0 Hematocrit) [facility] HospitalZjgkmodPAWMSFMAXHAZ3322-16-77 15:35:00 Test Item Value Reference Range Interpretation Comments POC Creatinine (test code = POC 0.6 0.5-1.4 Creatinine) [facility] HospitalWvtcxzbYFBTKZBDSGEG8221-67-21 15:35:00 Test Item Value Reference Range Interpretation Comments POC Glucose (test code = POC Glucose) 90 70-99 [facility] HospitalIvahzcqORLHNPNDJLYQ2368-27-44 15:35:00 Test Item Value Reference Range Interpretation Comments POC Ion Ca (test code = POC Ion Ca) 1.28 1.05-1.25 [place] 366651-08-17 15:35:00 Test Item Value Reference Range Interpretation Comments POC Hemoglobin (test code = POC 14.6 12.0-16.0 Hemoglobin) [facility] HospitalEctqqeiBOPDCYHZEVBZ9831-86-81 15:35:00 Test Item Value Reference Range Interpretation Comments POC Hematocrit (test code = POC 43.0 36.0-48.0 Hematocrit) [facility] HospitalZzczhokMDQRILKCAUSJ5515-40-54 15:35:00 Test Item Value Reference Range Interpretation Comments POC AGAP (test code = POC AGAP) 21.0 10.0-20.0 [facility] HospitalTncptpoLHNIXJIVERRJ0770-36-57 15:35:00 Test Item Value Reference Range Interpretation Comments eGFR (test code = eGFR) 108 [facility] HospitalJizembaPTVSYXKPNHQO3793-76-76 15:35:00 Test Item Value Reference Range Interpretation Comments POC AGAP (test code = POC AGAP) 21.0 10.0-20.0 [facility] HospitalPkxliuvFREPIUDNAWEA6633-96-09 15:35:00 Test Item Value Reference Range Interpretation Comments eGFR (test code = eGFR) 108 [facility] HospitalNslcvilYXMRIOUVWJLW9982-70-30 15:35:00 Test Item Value Reference Range Interpretation Comments POC Sodium (test code = POC Sodium) 144 135-145 [facility] HospitalSdlywhvUGBPGFAPVNNP6437-89-53 15:35:00 Test Item Value Reference Range Interpretation Comments POC Potassium (test code = POC 3.9 3.5-5.1 Potassium) [facility]FnalzxfPJESTPWSLX9587-10-34 14:33:00 Test Item Value Reference Range Interpretation Comments Coronavirus (COVID-19) Not Detected (11/17/20 SHRAVAN (test code = 9:33 AM) Coronavirus (COVID-19) SHRAVAN) [facility]andXbuqmghJZQZIKEUBG3417-56-50 14:33:00 Test Item Value Reference Range Interpretation Comments Coronavirus (COVID-19) Not Detected (11/17/20 SHRAVAN (test code = 9:33 AM) Coronavirus (COVID-19) SHRAVAN) [facility]andPREGNANCY TEST, [id number] 08:23:00 Test Item Value Reference Range Interpretation Comments PREG SERUM (test code Negative = 8914082832) BOY (test code = BOY) Less than 10 IU/L. ?If low titer or ectopic is suspected, resubmit specimen in 48-72 hours. [facility] - IN[facility]ZA A B RSV [id number] 07:49:00 Test Item Value Reference Range Interpretation Comments Influenza A virus by PCR (test code Negative Negative = 65059-5) Influenza B virus by PCR (test code Negative Negative = 70669-2) RSV by PCR (test code = 75861-6) Negative Negative Lab Interpretation (test code = Normal 01174-0) [facility] CenterURINALYSIS2020-02-05 07:22:00 Test Item Value Reference Range Interpretation Comments APPEARANCE (test code = Clear Clear 6281042167) COLOR (test code = Yellow Yellow 6030616030) PH (test code = 4.8-8.0 9440098771) SP GRAVITY (test code = 1.003-1.030 3068452827) GLU U QUAL (test code = Normal Normal 1179286577) BLOOD (test code = Negative Negative 2928989348) KETONES (test code = 80 mg/dL Negative A 4491247569) PROTEIN (test code = Negative Negative 2887-8) UROBILIN (test code = Normal Normal 9507237327) BILIRUBIN (test code = Negative Negative 7482377821) NITRITE (test code = Positive Negative A 3402976054) LEUK ROSS (test code = 250/uL Negative A 1940106285) RBC/HPF (test code = See_Comment [Autom ated message] 2639484595) The system [employer] generated this result transmitted ref erence range: 0 - 3 HP F. The reference range was not used to int erpret this result as normal/abnormal . WBC/HPF (test code = See_Comment H [Autom ated message] 8398511927) The system [employer] generated this result transmitted ref erence range: 0 - 5 HP F. The reference range was not used to int erpret this result as normal/abnormal . BACTERIA (test code = Many Negative A 7165046006) MUCOUS (test code = Slight Negative LPF A 4428675129) SQ EPITH (test code = See_Comment [Auto mated message] 3366807405) The system [employer] generated this result transmitted ref erence range: <=2 HPF. The reference range was not used to int erpret this result as normal/abnormal . Lab Interpretation (test Abnormal code = 75935-8) [facility] CenterCB WITH [id number] 06:30:00 Test Item Value Reference Range Interpretation [...] RDW-SD (test code = 45.0 fL 39-49.9 92007-0) RDW-CV (test code = 13.8 % 12-15.5 788-0) PLT (test code = See_Comment [Automated 777-3) message] The sy stem which generated this result transmitted reference range : 166 - 358 10*3/ ?L. The reference r josh was not used to interpret this result as normal/abnormal . MPV (test code = 10.3 fL 9.5-12.9 65272-5) NRBC/100 WBC (test See_Comment [Automat ed code = 8518408918) message] The system which generated this result transmitted reference range : 0.0 - 10.0 /100 WBCs. The refer ence range was not u sed to interpret th is result as normal/abnormal . NRBC x10^3 (test code <0.01 See_Comment [Auto mated = 1149954645) message] The s ystem which generated this result transmitted reference range : 10*3/?L. The reference range was not used to interpret this result as normal/abnormal . GRAN MAT (NEUT) % 31.5 % (test code = 770-8) IMM GRAN % (test code 0.10 % = 8549897489) LYMPH % (test code = 60.1 % 736-9) MONO % (test code = 7.0 % 5905-5) EOS % (test code = 0.9 % 713-8) BASO % (test code = 0.4 % 706-2) GRAN MAT x10^3(ANC) 2.36 10*3/uL 1.88-7.09 (test code = 3411278771) IMM GRAN x10^3 (test <0.03 0-0.06 code = 5895847551) LYMPH x10^3 (test code 4.52 10*3/uL 1.32-3.29 H = 731-0) MONO x10^3 (test code 0.53 10*3/uL 0.33-0.92 = 742-7) EOS x10^3 (test code = 0.07 10*3/uL 0.03-0.39 711-2) BASO x10^3 (test code 0.03 10*3/uL 0.01-0.07 = 704-7) REACT LYMPHS (test Rare code = 6788106088) Lab Interpretation Abnormal (test code = 86313-7) [facility] [id number] 06:17:00 Test Item Value Reference Range Interpretation Comments TROPONIN I (test 0.001 ng/mL See_Comment [Automated code = 7995596483) message] The system which generated this result [...] ? Lab Interpretation Normal (test code = 31017-7) [facility]. METABOLIC PANEL (66600)2019-05-09 06:13:00 Test Item Value Reference Range Interpretation Comments NA (test code = 140 mmol/L 135-145 1631408956) K (test code = 4.0 mmol/L 3.5-5 8516244253) CL (test code = 103 mmol/L 98-108 9815348653) CO2 TOTAL (test code = 22 mmol/L 23-31 L 9035871489) AGAP (test code = 2-16 2922773423) BUN (test code = 12 mg/dL 7-23 3104706838) GLUCOSE (test code = 75 mg/dL 70-110 8416216418) CREATININE (test code = 0.59 mg/dL 0.5-1.04 2072849773) TOTAL BILI (test code = 0.5 mg/dL 0.1-1.6 4856653754) CALCIUM (test code = 9.4 mg/dL 8.6-10.6 6077650568) T PROTEIN (test code = 8.1 g/dL 6.3-8.2 3803428534) ALBUMIN (test code = 4.6 g/dL 3.5-5 3730967269) ALK PHOS (test code = 68 U/L 34-122 4544910391) ALTv (test code = 24 U/L 5-35 1742-6) AST(SGOT) (test code = 47 U/L 13-40 H 6640066654) eGFR Calculation mL/min/1.73m2 (Non-) (test code = 7694757822) eGFR Calculation mL/min/1.73m2 () (test code = 1387663750) BOY (test code = BOY) Association of [...] tests). Lab Interpretation Abnormal (test code = 29257-6) [id number]13:00 Test Item Value Reference Range Interpretation Comments LIPASE (test code = 7146679035) 69 U/L 0-220 Lab Interpretation (test code = Normal 80336-3) [facility]00 Test Item Value Reference Range Interpretation Comments APTT Patient (test code = See_Comment [ Automated message] 3173-2) The system [employer] h generated this result transmitted ref erence range: 26 - 36 Seconds. The re ference range was not u sed to interpret this result as normal/abnor mal. Lab Interpretation (test Normal code = 90242-7) [facility] / [id number] 06:05:00 Test Item Value Reference Range Interpretation Comments PROTIME PATIENT (test See_Comment [Auto mated message] code = 5964-2) The system [employer] generated this result transmitted ref erence range: 10.1 - 1 2.6 Seconds. The re ference range was not u sed to interpret this result as normal/abnor mal. INR (test code = 6301-6) Nor mal INR <1.1; Warfarin Therap eutic range 2.0 to 3. 0 or 2.5 to 3.5, dep ending upon the indica tions. Lab Interpretation (test Normal code = 29389-3) [facility] Notes Date/Time Note Provider Source 2022-05-20 12:52:00-00:00 [facility] EMERGENCY PROVIDER REPORT REPORT#:[id number] REPORT STATUS: Signed DATE:05/20/22 TIME: 125 PATIENT: GENARO WHEAT UNIT #: [id number] ROOM/BED: AGE: 51 SEX: F PCP PHYS: No Primary or Family Ph ysician SERVICE AUTHOR: Stacey Lagunas MD * ALL edits or amendments must be made on the [employer]/computer document * HPI- Female Free Text HPI [...] rash, Warm, Dry, Turgor NL Genitourinary General Recovery Coach present Female Genitourinary External genitalia NL, No bleeding, No cervical motion tend, Os closed, No adnexal mass, No adnexal tenderness, No uterine enlargement, No uterine mass, No lesions or rash Vaginal Bleeding/Discharge Discharge thin, Discharge scant. Interpretation Diagnostics Lab Results Interpretation Results Laboratory Tests: 05/20 05/20 1355 1325 Serology Chlamydia DNA Probe (Not Detecte) NOT DETECTED N.gonorrhoeae DNA Probe (Not Detecte) NOT DETEC COURTNEY Urines Urine Color (YELLOW) COLORLESS Urine Appearance (CLEAR) CLEAR Urine pH (5 - 9) 7.0 Ur Specific [place] (1.001 - 1.035) 1.002 Urine Protein (NEG) [...] Impressions: ULTRASOUND - US TRANSVAGINAL W/PELVIS 05/20 1402 Report Impression - Status: SIGNED Entered: 05/20/2022 1452 IMPRESSION: 1. Small uterine fibroids. 2. Otherwise, unremarkable exam. Impression By: Starr Sanchez ULTRASOUND - DUP AB/PEL/SC/LTD 05/20 1402 Report Impression - Status: SIGNED Entered: 05/20/2022 1452 IMPRESSION: 1. Small uterine fibroids. 2. Otherwise, unremarkable exam. Impression By: Starr Sanchez ULTRASOUND - US PELVIS COMPLETE 05/20 1402 Report Impression - Status: SIGNED Entered: 05/20/2022 [...] 4 MG ONCE ONE 05/20 1300 DC 0 2/16 SL 05/20 1301 1259 Dose Instructions: (1)Lidocaine [...] ase Additional Instructions Follow-up with Ob[facility]yn for [place]. Referrals Provider Referral: Hafsa Del Toro MD Address: [address] [place] [id number] Discharge Note I have spoken with the [...] physician or other designated or consulting phys altagracia as outlined in the discharge instructions. The [...] symptoms should prompt an immediate [facility] the closest emergency department or a call to 911. at 1637 RPT #:[id number] END OF REPORT"
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
== END 2022-08-19 13:57 | disposition left against medical advice (07) ==
LOC: ER 12:55
DX: F41.8 Other specified anxiety disorders (principal); F31.9 Bipolar disorder, unspecified
CPT/HCPCS: 99282